=== PATIENT | female | born 2005 | race Caucasian/White ===

== ENCOUNTER 2023-11-16 07:54 | Emergency (ER) | payer OTHER, SELFPAY ==
[2023-11-16 08:04] VITALS: BP 124/73; PULSE 82; RESP 18; TEMP 36.6; O2SAT 98; BMI 24.2
--- NOTE | 2023-11-16 08:43 | XR_ITS ---
Patient: LINNEA MACIAS Facility:?[facility] Patient ID:?[id number] Site Patient ID:?[id number]. Site :?2003 Study:?XRay-Knee Left -11/16/2023 9:00:29 AM Ordering Physician:CHARMAINE Final Report: Indication: Pain Technique: Three views of the left knee Comparison: None Findings/impression : No acute fracture or malalignment. No significant knee joint effusion. No suspicious osseous lesions. The soft tissues are unremarkable. Dictated by Tc Stevenson MD @ 11/16/2023 9:14:18 AM Signed by:?Tc Stevenson MD @11/16/2023 9:14:18 AM (Electronic Signature)
--- NOTE | 2023-11-16 08:44 | ED.GENADULT ---
HPI - General Adult General Chief complaint: Extremity Pain/Injury, Lower Stated complaint: left knee pain Time Seen by Provider: 11/16/23 08:01 History of Present Illness HPI narrative: This 18-year-old female comes in reporting left knee pain. She states that it has been progressing Ali worse over the past month or so. She plays rugby competitively and did have and injury to a few days ago where she has a small bruise on the anterior of medial aspect of her patella of her left knee. She does report pain in this particular area. However she had pain prior to this episode and states that she is having more pain with regular ambulating. She has much more intense pain when squatting down and trying to stand up again. She does not report any catching or locking. She does not indicate any instability. She states that she did have a subluxation of this patella in her high school years a few years prior to this. She does not have any joint effusion. Related Data Home Medications Medication Instructions Recorded Confirmed fluoxetine 40 mg capsule (Prozac) 40 mg PO QAM 07/21/22 07/31/22 albuterol sulfate 90 mcg/actuation 1 puff inhalation 11/16/23 aerosol inhaler buspirone 10 mg tablet 10 mg PO BID 11/16/23 11/16/23 fluoxetine 60 mg tablet 60 mg PO DAILY 11/16/23 11/16/23 fluticasone 100 mcg-salmeterol 50 1 inh inhalation DAILY 11/16/23 11/16/23 mcg/dose blistr powdr for inhalation (Advair Diskus) norethindrone 1 mg-ethinyl 1 tab PO DAILY 11/16/23 11/16/23 estradiol 10 mcg (24)-iron 10 mcg(2) tablet (Lo Loestrin Fe) Previous Rx's Medication Instructions Recorded ketorolac 10 mg tablet 10 mg PO Q8H 5 days #15 tabs 11/16/23 Allergies Allergy/AdvReac Type Severity Reaction Status Date / Time amoxicillin Allergy Intermediate Rash Verified 11/16/23 08:10 Review of Systems Status of ROS: Reports: 10 or more systems reviewed and unremarkable except as noted in History and below Narrative: Constitutional: No fevers, no weight gain or loss. Eyes: No discharge. No vision changes. HENT: No congestion, no sore throat, no ear pain. Cardiovascular: No chest pain, no palpitations. Respiratory: No shortness of breath, no wheezes, no cough. Gastrointestinal: No abdominal pain, no vomiting, no diarrhea. Genitourinary: No dysuria, no hematuria. Musculoskeletal: Normal range of motion. Left knee pain as described above. Skin: No rashes, no pruritis. Neurological: No dizziness, weakness, sensory change, speech change. Endo/Heme/Allergies: No bruising or bleeding. No polydipsia. Pysch: no suicidality, no anxiety, no insomnia. All other systems reviewed and are negative. [facility] Medical History (Updated 11/16/23 @ 09:44 by Mynor Byrd MD) Depression ?F32.A - Depression, unspecified (ICD-10) OCD (obsessive compulsive disorder) ?F42.9 - Obsessive-compulsive disorder, unspecified (ICD-10) Surgical History (Updated 07/21/22 @ 10:26 by Loida Laboy PA-C) History of colonoscopy ?Z98.890 - Other specified postprocedural states (ICD-10) History of endoscopy ?Z98.890 - Other specified postprocedural states (ICD-10) Social History (Updated 07/21/22 @ 10:28 by Loida Laboy PA-C) Narrative: [employer] student. Exercises 5 to 7 times a day. Nonsmoker. Use alcohol 1 to 2 times a week. No recreational drug use. No concerns with safety or abuse. Smoking Status: Never smoker Do you use any of these nicotine containing products: None How often do you have a drink containing alcohol: monthly or less How often do you have six or more drinks on one occasion: Never AUDIT-C Alcohol total score: 1 Non-prescribed substance use: denies use Little interest or pleasure in doing things: several days Feeling down, depressed, or hopeless: several days Exam Narrative: Exam Narrative: Constitutional: Well-developed, well-nourished, no acute distress. HEENT: Normocephalic, atraumatic. Neck: Normal range of motion. Nontender. Supple. Heart: Intact distal pulses. Lungs: No chest discomfort. No wheezes, rhonchi, or rales. Abdomen: Nontender. Back: Normal range of motion. Extremities: Normal range of motion. Small bruise on the anterior medial aspect of the left patella. She has tenderness when moving her patella when relaxed in full extension. Dennys's test is negative. Ankush's test is negative. There is no laxity with varus and valgus stress. No joint effusion. Skin: Intact. No rash. Warm. No erythema or pallor. Neurologic: No altered sensation. No weakness. Alert and oriented. Psychiatric: No suicidality. No anxiety or depression. No insomnia. Nursing notes and vitals signs are reviewed. Const: Vital Signs, click to edit/add: Vital Signs - 24 hr 11/16/23 08:04 Temperature 97.8 F Pulse Rate [Right Pulse Oximeter] 82 Respiratory Rate 18 Blood Pressure [Ri ght Upper Arm] 124/73 Pulse Oximetry 98 Oxygen Delivery Me thod Room Air Course Vital Signs Vital signs: Initial Vital Signs Temperature 97.8 F 11/16/23 08:04 Temperature Source Temporal Artery Scan 11/16/23 08:04 Pulse Rate 82 11/16/23 08:04 Pulse Rhythm Regular 11/16/23 08:04 Respiratory Rate 18 11/16/23 08:04 Blood Pressure 124/73 11/16/23 08:04 Blood Pressure Mean 90 11/16/23 08:04 Blood Pressure Position Sitting 11/16/23 08:04 Pulse Oximetry 98 11/16/23 08:04 Oxygen Delivery Method Room Air 11/16/23 08:04 Vital Signs Temperature 97.8 F 11/16/23 08:04 Pulse Rate 82 11/16/23 08:04 Respiratory Rate 18 11/16/23 08:04 Blood Pressure 124/73 11/16/23 08:04 Pulse Oximetry 98 11/16/23 08:04 Oxygen Delivery Method Room Air 11/16/23 08:04 Temperature 97.8 F 11/16/23 08:04 Pulse Rate 82 11/16/23 08:04 Respiratory Rate 18 11/16/23 08:04 Blood Pressure 124/73 11/16/23 08:04 Pulse Oximetry 98 11/16/23 08:04 Oxygen Delivery Method Room Air 11/16/23 08:04 Medical Decision Making MDM Narrative Medical decision making narrative: This patient comes in with pain in her left knee as described above. X-ray imaging by my review shows no acute abnormalities. Radiology report is pending. This patient's symptoms seem to be related to overuse injury plus she did have a contact injury event playing rugby. She received crutches and a prescription for Toradol. There is no instability or other reason for immobilizing her leg. I did advise her to follow-up with orthopedic clinic. Discharge Plan Discharge Clinical Impression: Acute knee pain Patient Disposition: Home, Self-Care Condition: Unchanged Additional Instructions: Use crutches as needed. Increase activity as tolerated. Take medication also as needed and directed. Follow-up with orthopedic clinic for further evaluation and treatment. Call [phone] for appointment. Prescriptions: New ketorolac 10 mg tablet 10 mg PO Q8H 5 Days Qty: 15 0RF No Action fluoxetine [Prozac] 40 mg capsule 40 mg PO QAM albuterol sulfate 90 mcg/actuation HFA aerosol inhaler 1 puff inhalation Lo Loestrin Fe 1 mg-10 mcg (24)/10 mcg (2) tablet 1 tab PO DAILY fluoxetine 60 mg tablet 60 mg PO DAILY buspirone 10 mg tablet 10 mg PO BID fluticasone propion-salmeterol [Advair Diskus] 100-50 mcg/dose blister with device 1 inh inhalation DAILY Follow Up/Referrals: Provider,Not a Local [Primary Care Provider] - Stand Alone Forms: [email or web address] Info Instructions
== END 2023-11-16 09:57 | disposition home or self-care (01) ==
PROVIDERS: Emergency Provider Emergency Medicine Emergency Medical Services
DX: M25.562 Pain in left knee (principal)
CPT/HCPCS: 73562; 99283; 99284

== ENCOUNTER 2024-01-08 18:24 | Emergency (ER) | payer OTHER, SELFPAY ==
[2024-01-08] VITALS (10 sets, daily range): BP systolic 121–138; BP diastolic 79–90; PULSE 77–99; RESP 26; TEMP 36.8; O2SAT 96–100; BMI 25.1
--- NOTE | 2024-01-08 18:53 | XR_ITS ---
Patient: LINNEA MACIAS Facility:?[facility] Patient ID:?[id number] Site Patient ID:?[id number] Site :?2003 Study:?XRay-Chest 2 VIEWS-01/08/2024 7:16:58 PM Ordering Physician:JOSEPH Final Report: INDICATIONS: Shortness of breath. Asthma. TECHNIQUE: Chest 2 view. COMPARISON: None FINDINGS: No pneumothorax or pleural effusion. Lungs are clear. Cardiac and mediastinal contours are within normal limits. Upper abdomen and osseous structures as imaged show no acute abnormality. IMPRESSION: No evidence of acute cardiopulmonary disease. Dictated by Naeem Maciel MD @ 01/08/2024 7:26:58 PM Signed by:?Naeem Maciel MD @01/08/2024 7:26:58 PM (Electronic Signature)
--- NOTE | 2024-01-08 19:07 | ED.ASTHMA ---
HPI - Asthma General Date Seen: 01/08/24 Chief Complaint: Asthma Stated Complaint: Asthma exacerbation--cough, short of breath Time Seen by Provider: 01/08/24 18:25 Source: patient Mode of arrival: ambulatory Limitations: no limitations History of Present Illness HPI Narrative: Patient is a 18-year-old female presenting for shortness of breath. She has a history of asthma and states she feels like this is an asthma exacerbation. She states symptoms have been going on for the past 3 weeks and gradually getting worse. She has been using her home inhalers with only some improvement. Does states she of 2 inhalers with 1 of them having a longer mouth piece. Is not using spacers. States when she uses the inhaler she will feel them hit the back of her throat. Has had asthma exacerbations before worse than this but this 1 has been more consistent. Today she was exercising and despite trying the albuterol she was unable to catch her breath. She was seen a week ago by another hospital and was prescribed prednisone and doxycycline for possible sinus infection. She states she is per since slightly tender sinuses but not nearly as bad. Finished the prednisone 2 days ago. She states usually she feels like the prednisone helps but does not think this course did. Has been coughing quite a bit with the cough being productive. She states the color of the phlegm will range from clear to greenish yellow. Does have some chest pain that she feels is associated with the coughing. Denies fevers, chills, weakness, numbness, headache, vision changes. Was test for COVID/flu/RSV last week and was negative. States some people but her college of been sick was unsure with what. Related Data Home Medications Medication Instructions Recorded Confirmed fluoxetine 40 mg capsule (Prozac) 40 mg PO QAM 07/21/22 11/20/23 albuterol sulfate 90 mcg/actuation 1 puff inhalation 11/16/23 11/20/23 aerosol inhaler buspirone 10 mg tablet 10 mg PO BID 11/16/23 11/20/23 fluoxetine 60 mg tablet 60 mg PO DAILY 11/16/23 11/20/23 fluticasone 100 mcg-salmeterol 50 1 inh inhalation DAILY 11/16/23 11/20/23 mcg/dose blistr powdr for inhalation (Advair Diskus) norethindrone 1 mg-ethinyl 1 tab PO DAILY 11/16/23 11/20/23 estradiol 10 mcg (24)-iron 10 mcg(2) tablet (Lo Loestrin Fe) Previous Rx's Medication Instructions Recorded prednisone 20 mg tablet See Rx Instructions .Route 01/08/24 .COMPLEX #13 tabs Allergies Allergy/AdvReac Type Severity Reaction Status Date / Time amoxicillin Allergy Intermediate Rash Verified 11/20/23 09:53 Review of Systems Status of ROS Reports: 10 or more systems reviewed and unremarkable except as noted in History and below PFSH PFS Medical History Depression ?F32.A - Depression, unspecified (ICD-10) OCD (obsessive compulsive disorder) ?F42.9 - Obsessive-compulsive disorder, unspecified (ICD-10) Surgical History History of colonoscopy ?Z98.890 - Other specified postprocedural states (ICD-10) History of endoscopy ?Z98.890 - Other specified postprocedural states (ICD-10) Social History Narrative: [employer] student. Exercises 5 to 7 times a day. Nonsmoker. Use alcohol 1 to 2 times a week. No recreational drug use. No concerns with safety or abuse. Smoking Status: Never smoker Do you use any of these nicotine containing products: None How often do you have a drink containing alcohol: monthly or less How often do you have six or more drinks on one occasion: Never AUDIT-C Alcohol total score: 1 Non-prescribed substance use: denies use Little interest or pleasure in doing things: several days Feeling down, depressed, or hopeless: several days Exam Narrative: Exam Narrative: Const: Well-nourished, Well-developed, in mild distress Eyes: PERRL, no conjunctival injection, and symmetrical lids HENT: Atraumatic external nose and ears. Moist mucous membranes. Neck: Symmetric, trachea midline, No thyromegaly. CVS: RRR, No murmurs or gallops. Peripheral pulses 2+ and equal in all extremities RESP: Mild increase in respiratory effort. Clear to auscultation bilaterally. GI: Nontender/Nondistended, No rebound or guarding. MSK:Extremities w/o deformity, Normal Active ROM, tenderness to palpation of chest Skin: Warm, Dry. No rashes or lesions. Neuro: Normal Muscle tone, No focal neurological deficits. Psych: Awake, Alert, & Oriented x3. Appropriate mood and affect. Const: Vital Signs, click to edit/add: Vital Signs - 24 hr 01/08/24 18:31 01/08/24 18:35 01/08/24 18:45 Temperature 98.3 F Pulse Rate 99 77 Pulse Rate [Pulse Oximeter] 85 Respiratory Rate 26 H Blood Pressure Blood Pressure [Ri ght Upper Arm] 138/82 Pulse Oximetry 97 100 98 Oxygen Delivery Me thod Room Air 01/08/24 19:00 01/08/24 19:05 01/08/24 19:15 Temperature Pulse Rate 79 87 83 Pulse Rate [Pulse Oximeter] Respiratory Rate Blood Pressure 131/79 Blood Pressure [Ri ght Upper Arm] Pulse Oximetry 100 100 96 Oxygen Delivery Me thod 01/08/24 19:30 01/08/24 19:45 01/08/24 20:00 Temperature Pulse Rate 86 81 79 Pulse Rate [Pulse Oximeter] Respiratory Rate Blood Pressure 121/90 H Blood Pressure [Ri ght Upper Arm] Pulse Oximetry 99 100 96 Oxygen Delivery Me thod 01/08/24 20:01 Temperature Pulse Rate 93 Pulse Rate [Pulse Oximeter] Respiratory Rate Blood Pressure Blood Pressure [Ri ght Upper Arm] Pulse Oximetry 96 Oxygen Delivery Me thod Course Vital Signs Vital signs: Initial Vital Signs Temperature 98.3 F 01/08/24 18:31 Temperature Source Temporal Artery Scan 01/08/24 18:31 Pulse Rate 85 01/08/24 18:31 Respiratory Rate 26 H 01/08/24 18:31 Blood Pressure 138/82 01/08/24 18:31 Blood Pressure Mean 100 01/08/24 18:31 Pulse Oximetry 97 01/08/24 18:31 Oxygen Delivery Method Room Air 01/08/24 18:31 Vital Signs Temperature 98.3 F 01/08/24 18:31 Pulse Rate 85 01/08/24 18:31 Respiratory Rate 26 H 01/08/24 18:31 Blood Pressure 138/82 01/08/24 18:31 Pulse Oximetry 97 01/08/24 18:31 Oxygen Delivery Method Room Air 04/30/24 18:31 Temperature 98.3 F 01/08/24 18:31 Pulse Rate 93 01/08/24 20:01 Respiratory Rate 26 H 01/08/24 18:31 Blood Pressure 121/90 H 01/08/24 20:00 Pulse Oximetry 96 01/08/24 20:01 Oxygen Delivery Method Room Air 01/08/24 18:31 Medications Administered Medications: Discontinued Medications Generic Name Dose Route Start Last Admin Trade Name Sheyla PRN Reason Stop Dose Admin Albuterol 5 mg 01/08/24 18:52 01/08/24 19:10 Albuterol Sulfate 2.5 Mg/3 Ml Vial.Neb NEB 01/08/24 18:53 5 mg ONCE ONE Administration Methylprednisolone Sodium Succinate 125 mg 01/08/24 18:56 01/08/24 19:21 Methylprednisolone Sod Succ 62.5 Mg/Ml (125) IVP 01/08/24 18:57 125 mg ONCE ONE Administration MDM - Asthma MDM Narrative Medical decision making narrative: Patient is a 18-year-old female presenting for shortness of breath. She states this feels like an asthma exacerbation. She is also having chest pain. The chest pain is reproducible on exam but I will ordered EKG and troponin to better rule out ACS. Will also recheck a COVID/flu/RSV. BMP and CBC also ordered along with a test. Chest x-ray ordered look for signs of pneumonia or pneumothorax. The time I was able to examine her she order received 2 DuoNeb treatments states it was making her feel better. She is still coughing quite a bit but lungs sound clear at that time I will give her another breathing treatment. This time albuterol. Solu-Medrol also given Chest x-ray reviewed by myself and the radiologist shows no concerning abnormalities. Lab work shows no concerning findings. EKG within normal limits. Chest pain was reproducible with palpation seems very unlikely to be ACS related most likely musculoskeletal secondary to the coughing. After the albuterol she is feeling much better and feels safe for discharge. At this time I will discharge her on a longer dose of steroids concerned she is just on a burst dose and she has been having symptoms for 3 weeks. Written prescription for a spacer for her inhaler was also provided. Lab Data Labs: Lab Results 01/08/24 Range/Units 19:02 WBC 9.24 (4.50-11.00) K/uL RBC 4.52 (4.00-5.20) m/uL Hgb 13.7 (12.0-16.0) gm/dL Hct 41.8 (33.0-51.0) % MCV 93 (80-100) fL MCH 30 (26-34) pg MCHC 33 (32-36) gm/dL RDW Coeff of Caitie 11.9 (11.5-15.5) % Plt Count 465 H (140-440) K/uL Neut % (Auto) 44.0 (42.0-72.0) % Lymph % (Auto) 48.4 H (20-44) % [place] % (Auto) 5.1 (0.0-11.0) % Eos % (Auto) 1.6 (0.0-7.0) % Baso % (Auto) 0.3 (0.0-3.0) % Neut # (Auto) 4.06 (1.7-7.0) K/uL Lymph # (Auto) 4.50 H (0.90-2.90) K/uL [place] # (Auto) 0.50 (0.00-0.90) K/UL Eos # (Auto) 0.15 (0.00-0.50) K/uL Baso # (Auto) 0.03 (0.00-0.30) K/uL Abs Immat Gran (auto) 0.06 (0.00-0.30) K/uL Imm/Tot Granulo (auto) 0.6 % Sodium 137 (135-149) mmol/L Potassium 3.6 (3.6-5.1) mmol/L Chloride 100 (96-114) mmol/L Carbon Dioxide 27 (20-32) mmol/L Anion Gap 10 (7-15) mEq/L BUN 20 (5-24) mg/dL Creatinine 1.0 (0.5-1.5) mg/dL Estimated Creat Clear 87.27 Estimated GFR 83 ml/min Glucose 80 (60-115) mg/dL Calcium 9.7 (8.4-10.6) mg/dL HCG, Qual Negative (Negative) SARS-CoV-2 (PCR) Negative SARS-CoV-2 (Negative) Influenza Type A (PCR) Negative PCR FLU A (Negative) Influenza Type B (PCR) Negative PCR FLU B (Negative) RSV (PCR) Negative PCR RSV (Negative) POC Troponin I 0.00 L (0.01-0.04) ng/ml Imaging Data Chest x-ray: Radiologist's impression: No evidence of acute cardiopulmonary disease. Dictated by Naeem Maciel MD @ 01/08/2024 7:26:58 PM ECG Data Attestation: I personally reviewed and interpreted this ECG as follows: Prior ECG tracings: not available for review Interpretation: Normal sinus rhythm with rate 74 beats per minute, normal intervals, normal axis, no ST or T-wave abnormalities. It does appear to be some artifact in V4 through V6 likely from movement considering is also seen and though continues lead II Discharge Plan Discharge Clinical Impression: Asthma with acute exacerbation Patient Disposition: Home, Self-Care Condition: Improved Instructions: How to Use a Metered-Dose Inhaler and a Spacer (DC) Additional Instructions: When your using your asthma albuterol inhaler use the spacer. Use the prednisone for the next 10 days as directed. You will taper down starting from 50 mg a day down to 10. Return for new worsening symptoms. Prescriptions: New prednisone 20 mg tablet See Rx Instructions .ROUTE .COMPLEX Qty: 13 0RF Rx Instructions: Take 40 mg daily for 3 days from to 01/09 Take 30 mg for 2 days from 01/10 to 01/11 Take 20 mg for 2 days from 01/12 to 6 Take 10 mg for 2 days from 01/14 to 01/15 Pills can be cut in half No Action fluoxetine [Prozac] 40 mg capsule 40 mg PO QAM albuterol sulfate 90 mcg/actuation HFA aerosol inhaler 1 puff inhalation Lo Loestrin Fe 1 mg-10 mcg (24)/10 mcg (2) tablet 1 tab PO DAILY fluoxetine 60 mg tablet 60 mg PO DAILY buspirone 10 mg tablet 10 mg PO BID fluticasone propion-salmeterol [Advair Diskus] 100-50 mcg/dose blister with device 1 inh inhalation DAILY Follow Up/Referrals: Provider,Not a Local [Primary Care Provider] - Stand Alone Forms: [employer] Info Instructions
[2024-01-08] MEDS: ALBUTEROL SULFATE 2.5 MG/3 ML VIAL.NEB 5 MG NEB (19:10)
[2024-01-08 19:20] LABS: Basophils Absolute Auto 0.03 K/uL (0.00-0.30); Basophils Percent Auto 0.3 % (0.0-3.0); Eosinophils Absolute Auto 0.15 K/uL (0.00-0.50); Eosinophils Percent Auto 1.6 % (0.0-7.0); Hematocrit 41.8 % (33.0-51.0); Hemoglobin* 13.7 gm/dL (12.0-16.0); Immature Granulocytes Abs Auto 0.06 K/uL (0.00-0.30); Immature Granulocytes Pct Auto 0.6 %; Lymphocytes Percent Auto 48.4 % (20-44); Mean Corpuscular HGB Conc 33 gm/dL (32-36); Mean Corpuscular Hemoglobin 30 pg (26-34); Mean Corpuscular Volume 93 fL (80-100); Monocytes Percent Auto 5.1 % (0.0-11.0); Neutrophils Absolute Auto 4.06 K/uL (1.7-7.0); Platelet Count* 465 K/uL (140-440); RDW Coefficient of Variation % 11.9 % (11.5-15.5); Red Blood Count 4.52 m/uL (4.00-5.20); White Blood Count* 9.24 K/uL (4.50-11.00)
[2024-01-08] MEDS: METHYLPREDNISOLONE SOD SUCC 62.5 MG/ML (125) 125 MG IVP (19:21)
[2024-01-08 19:22] LABS: Slide Review Reflex No
[2024-01-08 19:34] LABS: Chloride* 100 mmol/L (96-114); Potassium* 3.6 mmol/L (3.6-5.1); Sodium* 137 mmol/L (135-149)
[2024-01-08 19:37] LABS: Anion Gap 10 mEq/L (7-15); Blood Urea Nitrogen* 20 mg/dL (5-24); Carbon Dioxide* 27 mmol/L (20-32); Est. Creatinine Clearance* 87.27; Estimated Glomerular Filt Rate 83 ml/min
[2024-01-08 19:38] LABS: Calcium* 9.7 mg/dL (8.4-10.6); Glucose* 80 mg/dL (60-115)
[2024-01-08 19:59] LABS: HCG Qualitative Serum* Negative (Negative)
[2024-01-08 20:01] LABS: PCR FLU A Negative PCR FLU A (Negative); PCR FLU B Negative PCR FLU B (Negative); PCR RSV Negative PCR RSV (Negative); SARS PCR* Negative SARS-CoV-2 (Negative)
== END 2024-01-08 20:29 | disposition home or self-care (01) ==
PROVIDERS: Emergency Provider Student in an Organized Health Care Education/Training Program
DX: J45.901 Unspecified asthma with (acute) exacerbation (principal)
CPT/HCPCS: 36415; 71046; 80048; 84484; 84703; 85025; 87631; 93005; 94640; 99283; 99284; 99285; J2919

== ENCOUNTER 2024-01-17 13:00 | Outpatient (RCR) | payer OTHER, SELFPAY | END 2024-01-18 07:41 | disposition home or self-care (01) | PROVIDERS: Visit Provider Orthopaedic Surgery Sports Medicine | DX: M76.52 Patellar tendinitis, left knee (principal); M25.562 Pain in left knee; M25.572 Pain in left ankle and joints of left foot; M25.551 Pain in right hip; M25.552 Pain in left hip; Z51.89 Encounter for other specified aftercare | CPT/HCPCS: 97110; 97112; 97140; 97162; 97535 ==

== ENCOUNTER 2024-06-24 19:13 | Emergency (ER) | payer OTHER, SELFPAY ==
[2024-06-24 19:21] VITALS: BP 131/79; PULSE 83; RESP 18; TEMP 36.8; O2SAT 98; BMI 25.0
--- NOTE | 2024-06-24 19:28 | ED.GENADULT ---
HPI - General Adult General Time Seen by Provider: 19:28 Date Seen: 06/24/24 Chief complaint: Ear/Nose/Throat Problem Stated complaint: Hit nose at [place]-poss broken nose Time Seen by Provider: 06/24/24 19:28 Source: patient and RN notes reviewed Mode of arrival: ambulatory Limitations: no limitations History of Present Illness HPI narrative: This 19-year-old female is coming in with nasal injury. She was doing a warmup drill in [place] and she went down quickly and hit her bridge of her nose on her partners head. She had bleeding from the right nares, nose pain and her nose looked deformed from baseline. She does have a history of a nasal fracture that healed without any intervention, reported no deformity from this. Denies any loss of consciousness, and no other injury, no neck pain. She feels like her jaws fine, teeth feel normal. Related Data Home Medications ?Medication ?Instructions ?Recorded ?Confirmed fluoxetine 40 mg capsule (Prozac) 40 mg PO QAM 07/21/22 11/20/23 albuterol sulfate 90 mcg/actuation 1 puff inhalation 11/16/23 11/20/23 aerosol inhaler buspirone 10 mg tablet 10 mg PO BID 11/16/23 11/20/23 fluoxetine 60 mg tablet 60 mg PO DAILY 11/16/23 11/20/23 fluticasone 100 mcg-salmeterol 50 1 inh inhalation DAILY 11/16/23 11/20/23 mcg/dose blistr powdr for inhalation (Advair Diskus) norethindrone 1 mg-ethinyl 1 tab PO DAILY 11/16/23 11/20/23 estradiol 10 mcg (24)-iron 10 mcg(2) tablet (Lo Loestrin Fe) doxycycline monohydrate 100 mg 100 mg PO BID 06/24/24 06/24/24 capsule Previous Rx's ?Medication ?Instructions ?Recorded prednisone 20 mg tablet See Rx Instructions .Route 01/08/24 .COMPLEX #13 tabs Allergies Allergy/AdvReac Type Severity Reaction Status Date / Time amoxicillin Allergy Intermediate Rash Verified 11/20/23 09:53 Review of Systems Status of ROS: Reports: 6 or more systems reviewed and unremarkable except as noted in History and below [facility] Medical History Depression ?F32.A - Depression, unspecified (ICD-10) OCD (obsessive compulsive disorder) ?F42.9 - Obsessive-compulsive disorder, unspecified (ICD-10) Surgical History History of colonoscopy ?Z98.890 - Other specified postprocedural states (ICD-10) History of endoscopy ?Z98.890 - Other specified postprocedural states (ICD-10) Social History Narrative: [employer] student. Exercises 5 to 7 times a day. Nonsmoker. Use alcohol 1 to 2 times a week. No recreational drug use. No concerns with safety or abuse. Smoking Status: Never smoker Do you use any of these nicotine containing products: None How often do you have a drink containing alcohol: monthly or less How often do you have six or more drinks on one occasion: Never AUDIT-C Alcohol total score: 1 Non-prescribed substance use: marijuana (any form) Non-prescribed substance use details: occasional edibles Little interest or pleasure in doing things: several days Feeling down, depressed, or hopeless: several days Exam Const: Vital Signs, click to edit/add: Vital Signs - 24 hr 06/24/24 19:21 Temperature 98.3 F Pulse Rate [Pulse Oximeter] 83 Respiratory Rate 18 Blood Pressure [Ri ght Upper Arm] 131/79 Pulse Oximetry 98 Oxygen Delivery Me thod Room Air This 19-year-old female is alert, interactive, no apparent distress. She is ambulatory into the ED of her own accord. Her nasal bridge seems to have some swelling, some ecchymosis and deformity with there is a little bit of a sulcus more on the left side. She has some blood in the right nares, no evidence of any hematoma. TMs canals are normal, no pain over TMJs. Her jaw opens easily, she feels her teeth occlude normally. No oral pharyngeal trauma noted. Pupils are equal round reactive, sclera clear. No midline tenderness of her neck, no neck masses. Documenting provider has reviewed patient's vital signs: yes Course Course ED Course: Reviewed with patient that standard of care for nasal fracture imaging is CT. We will proceed with facial CT without contrast. Nose is not actively bleeding, note no septal hematoma. Do suspect fracture with the deformity in the nasal bridge that is visible. Will await the CT. Reevaluation(s) Time of Reevaluation #1: 20:36 Reevaluation #1: Reviewed CT report with patient, provided her a copy. We are going to give her some Tylenol prior to discharge, she does not have any in her dorm. Vital Signs Vital signs: Initial Vital Signs Temperature 98.3 F 06/24/24 19:21 Temperature Source Temporal Artery Scan 06/24/24 19:21 Pulse Rate 83 06/24/24 19:21 Respiratory Rate 18 06/24/24 19:21 Blood Pressure 131/79 06/24/24 19:21 Blood Pressure Mean 96 06/24/24 19:21 Pulse Oximetry 98 06/24/24 19:21 Oxygen Delivery Method Room Air 06/24/24 19:21 Vital Signs Temperature 98.3 F 06/24/24 19:21 Pulse Rate 83 06/24/24 19:21 Respiratory Rate 18 06/24/24 19:21 Blood Pressure 131/79 06/24/24 19:21 Pulse Oximetry 98 06/24/24 19:21 Oxygen Delivery Method Room Air 06/24/24 19:21 Temperature 98.3 F 06/24/24 19:21 Pulse Rate 83 06/24/24 19:21 Respiratory Rate 18 06/24/24 19:21 Blood Pressure 131/79 06/24/24 19:21 Pulse Oximetry 98 06/24/24 19:21 Oxygen Delivery Method Room Air 06/24/24 19:21 Medical Decision Making Imaging Data CT- Other: Attestation: I have reviewed the pertinent imaging results. Radiologist's impression: Patient: LINNEA MACIAS Facility:?[facility] Patient ID:?[id number] Site Patient ID:?[id number]. Site :?[id number] Study:?CT-Facial W/O-06/24/2024 7:47:58 PM Ordering Physician:John Kumar Final Report: Indication: Injury, rule out nasal fracture. [place] injury. Technique: Helical axial sections were obtained through the facial skeleton, mandible and adjacent structures without intravenous contrast material. Comparison: None Findings: No fracture is demonstrated in the facial skeleton or mandible. Midline nondisplaced nasal bone fracture and nondisplaced fracture along the right nasal aperture. Age indeterminate rightward deviation of the nose. Leftward deviation of the nasal septum. The orbits and their contents are normal in appearance. There is no evidence for penetrating injury to the ocular globes. The lenses are situated in their normally expected anterior locations. No radiodense or metallic foreign body is demonstrated. No significant abnormality is demonstrated in the sinonasal cavities or adjacent structures. The sinonasal cavities are clear. The ostiomeatal complexes on each side are structurally normal and widely patent. The visualized portions of the brain are normal in appearance. Impression: 1. Midline nondisplaced nasal bone fracture and nondisplaced fracture along the right nasal aperture. Age indeterminate rightward deviation of the nose. 2. Leftward deviation of the nasal septum. Please note that all CT scans at this facility use dose modulation, iterative reconstruction, and/or weight-based dosing when appropriate to reduce radiation dose to as low as reasonably achievable. Dictated by Leo Yadav MD @ 06/24/2024 8:08:11 PM (Electronic Signature) Discharge Plan Discharge Clinical Impression: Fracture of nasal bone Qualifiers: Encounter type: initial encounter Fracture type: closed Qualified Code(s): S02.2XXA - Fracture of nasal bones, initial encounter for closed fracture Patient Disposition: Home, Self-Care Condition: Stable Instructions: Nasal Fracture (ED) Additional Instructions: Ice, elevate head as much as able to next few days while sleeping to help decrease swelling. Tylenol and ibuprofen per bottle directions as needed for discomfort. Call [facility] on Sunday at [phone] and let them know that you need to get scheduled to see Dr. Garcia in ENT for follow-up for nasal fracture. If concerns in the interim until you see ENT, follow up with us in the ED. Activity Level: Activity as Tolerated Prescriptions: No Action fluoxetine [Prozac] 40 mg capsule 40 mg PO QAM albuterol sulfate 90 mcg/actuation HFA aerosol inhaler 1 puff inhalation Lo Loestrin Fe 1 mg-10 mcg (24)/10 mcg (2) tablet 1 tab PO DAILY fluoxetine 60 mg tablet 60 mg PO DAILY buspirone 10 mg tablet 10 mg PO BID fluticasone propion-salmeterol [Advair Diskus] 100-50 mcg/dose blister with device 1 inh inhalation DAILY prednisone 20 mg tablet See Rx Instructions .ROUTE .COMPLEX Qty: 13 0RF Rx Instructions: Take 40 mg daily for 3 days from to 01/09 Take 30 mg for 2 days from 01/10 to 01/11 Take 20 mg for 2 days from 01/12 to 01/13 Take 10 mg for 2 days from 01/14 to 01/15 Pills can be cut in half doxycycline monohydrate 100 mg capsule 100 mg PO BID Follow Up/Referrals: Provider,Not a Local [Primary Care Provider] - Stand Alone Forms: MyHealth Info Instructions
--- NOTE | 2024-06-24 19:32 | CRLHL7_ITS ---
For Patients: As a result of the Century Cures Act, medical imaging exams and procedure reports are released immediately into your electronic medical record. You may view this report before your referring provider. If you have questions, please contact your health care provider. Indication: Injury, rule out nasal fracture. [place] injury. Technique: Helical axial sections were obtained through the facial skeleton, mandible and adjacent structures without intravenous contrast material. Comparison: None Findings: No fracture is demonstrated in the facial skeleton or mandible. Midline nondisplaced nasal bone fracture and nondisplaced fracture along the right nasal aperture. Age indeterminate rightward deviation of the nose. Leftward deviation of the nasal septum. The orbits and their contents are normal in appearance. There is no evidence for penetrating injury to the ocular globes. The lenses are situated in their normally expected anterior locations. No radiodense or metallic foreign body is demonstrated. No significant abnormality is demonstrated in the sinonasal cavities or adjacent structures. The sinonasal cavities are clear. The ostiomeatal complexes on each side are structurally normal and widely patent. The visualized portions of the brain are normal in appearance. Impression: 1. Midline nondisplaced nasal bone fracture and nondisplaced fracture along the right nasal aperture. Age indeterminate rightward deviation of the nose. 2. Leftward deviation of the nasal septum. Please note that all CT scans at this facility use dose modulation, iterative reconstruction, and/or weight-based dosing when appropriate to reduce radiation dose to as low as reasonably achievable. Dictated by Leo Yadav MD @ 06/24/2024 8:08:11 PM (Electronically Signed)
[2024-06-24 20:39] VITALS: BP 128/54; PULSE 89; RESP 16; O2SAT 99
[2024-06-24] MEDS: ACETAMINOPHEN 500 MG TABLET 1000 MG PO (20:39)
== END 2024-06-24 20:55 | disposition home or self-care (01) ==
PROVIDERS: Emergency Provider Family Medicine
DX: S02.2XXA Fracture of nasal bones, initial encounter for closed fracture (principal); Y93.63 Activity, rugby
CPT/HCPCS: 70486; 99283; 99284; A9270

== ENCOUNTER 2024-09-20 14:51 | Outpatient (CLI) | payer OTHER, SELFPAY | END 2024-09-20 14:52 | disposition home or self-care (01) | LOC: AMB 10-04 06:59 | PROVIDERS: Visit Provider Emergency Medicine | DX: R06.09 Other forms of dyspnea (principal); R41.0 Disorientation, unspecified | CPT/HCPCS: A0425; A0427 ==

== ENCOUNTER 2024-09-20 15:23 | Emergency (ER) | payer OTHER, SELFPAY ==
--- OUTSIDE RECORDS SUMMARY | 2024-09-20 15:24 | XMS_ITS | Clinical Summary ---
Author Organization [facility] Address [place], [place] [address] Care Team Providers Care Family Services Manager Name Role Phone Pcp, No Primary Care Provider Unavailabl e Allergies Active Allergy Reactions Criticality Noted Date Comments Penicillins Rash High 11/13/2008 Amoxicillin Medications busPIRone (BUSPAR) 10 mg tablet 12/18/2022 Active FLUoxetine (PROZAC) 40 mg capsule 12/18/2022 Active Blisovi Fe , tablet Take 1 Tablet by mouth once daily. 08/25/2022 Active Active Problems No known active problems Social History Tobacco Use Types Packs/Day Years Used Date Smoking Tobacco: Never Smokeless Tobacco: Never Tobacco Cessation:Counseling Given: Yes Alcohol Use Standard Drinks/Week Comments Yes 0 (1 standard drink = 0.6 oz pur e alcohol) 2-3 drinks per week Social Connections Answer Date Recorded Frequency of Communication with Friends and Fami ly Not on file 12/27/2022 Comments Unknown Sex and Gender Information Value Date Recorded Sex Assigned at Not on file Legal Sex Female 1:00 PM CDT Gender Identity Not on file Sexual Orientation Not on file Obstetrics History Last Filed Vital Signs Vital Sign Reading Time Taken Comments Blood Pressure 107/69 12/27/2022 3:53 PM CDT Pulse 61 12/27/2022 3:53 PM CDT Temperature 36.8 C (98.2 F) 12/27/2022 3:53 PM CDT Respiratory Rate - - Oxygen Saturation 96% 12/27/2022 3:53 PM CDT Inhaled Oxygen Concentration - - Weight 70 kg (154 lb 6.4 oz) 12/27/2022 3:53 PM CDT Height 170 cm (5' 6.93) 12/27/2022 3:53 PM CDT Body Mass Index 24.23 12/27/2022 3:53 PM CDT Plan of Treatment Health Maintenance Due Date Last Done Comments Tdap 2014 Depression screening for age 12+ 2015 HIV for age 15-65 2018 HPV series for age 9-26 (1 - 3-dose series) 2018 Chlamydia for age 16-24 2019 Hepatitis C screening for ag e 18-79 2021 Tetanus booster 2023 BMI (ht and wt on same day) for age 18+ 12/28/2023 12/27/2022 Pap test for age 21-65 2024 COVID-19 vaccine series ( season) 2024 09/19/2021 Influenza for age 9-49 05/11/2024 Meningococcal series for age 11-21 Aged Out No longer eligible based on patient's age to complete this topic Pneumococcal series for age 6-49 Aged Out No longer eligible based on patient's age to complete this topic Care Teams Family Services Manager Relationship Specialty Start Date End Date Pcp, No . PCP - General 12/27/22
--- OUTSIDE RECORDS SUMMARY | 2024-09-20 15:24 | XMS_ITS | Clinical Summary ---
Author Organization [facility] [employer] lin Address [address] [facility] [place] [address] Care Team Providers Care Duck Bill Operator Name Role Phone No, Pcp ORACLE ANALYST Primary Care Provider Unavailabl e Allergies Active Allergy Reactions Criticality Noted Date Comments Amoxicillin Rash Low 08/30/2016 Medications No known medications Social History Tobacco Use Types Packs/Day Years Used Date Smoking Tobacco: Never Comments No Sex and Gender Information Value Date Recorded Sex Assigned at Not on file Legal Sex Female 6:22 PM EST Gender Identity Not on file Sexual Orientation Not on file Last Filed Vital Signs Vital Sign Reading Time Taken Comments Blood Pressure 108/62 08/30/2016 6:29 PM EST Pulse 89 08/30/2016 6:29 PM EST Temperature 37.1 C (98.7 F) 08/30/2016 6:29 PM EST Respiratory Rate 16 08/30/2016 6:29 PM EST Oxygen Saturation 98% 08/30/2016 6:29 PM EST Inhaled Oxygen Concentration - - Weight 54.4 kg (120 lb) 08/30/2016 6:29 PM EST Height - - Body Mass Index - - Plan of Treatment Health Maintenance Due Date Last Done Comments Depression: Screening Annual ly using PHQ-2/9 in Adults 18 yrs or above (or HM Modifier)([facility]) 2021 Hepatitis C Virus Infection in Adolescents and Adults: Screening (or Modifier) ([facility]) 2021 SDOH Screening Reminder: Ruthy bhatia for all adults ([facility]) 2021 Tobacco Smoking Cessation: i n Adults excluding Women: Behavioral and Pharmacotherapy Interventions ([facility]) 2021 DTaP/Tdap/Td Vaccines ([facility]) (1 - Tdap) 2022 Lipid Screening: Once for Wo men aged 20 to 45 yrs ([facility]) 2023 Cervical Cancer Screenin 1-65 yrs of age (or Modifier) 2024 Cervical Cancer Screening: P ap every 3 yrs pts age 21-65 2024 Cervical Cancer: Pap Screeni ng with Modifier timing ([facility]) 2024 Cervical Cancer: hrHPV alone or with cotesting Pap for Pts 30-65yrs screening every 5yrs ([facility] ) 2024 Flu Vaccination: Yearly for ages 18mos through 64 years (or Modifier)([facility] ) 04/10/2024 COVID-19 Vaccine Screening: Initial Series and Booster Status ([facility]) (2023- season) 2024 Zoster/Shingles Vaccine Seri es Screening: Adults aged 18+ yrs (or HM Modifiers)([facility] ) (1 of 2) 2053 Pneumococcal Vaccination Scr eening: Pts 0-19 & 19-64 yrs of age ([facility] ) Aged Out No longer eligible based on patient's age to complete this topic Medical Devices Not on file Insurance [facility] Care Teams Duck Bill Operator Relationship Specialty Start Date End Date No, Pcp, ORACLE ANALYST N/A Do not use PCP - General 08/30/16
--- OUTSIDE RECORDS SUMMARY | 2024-09-20 15:24 | XMS_ITS | Continuity of Care Document ---
Author Name [facility] User [place] Address Unknown Organization Unknown Address Unknown Procedures FILTER APPLIED:Only known Procedures with Onset Date within the last 5 years Procedure Date Procedure Provider Additionjuan francisco funez Information Status SELF CARE MNGMENT TRAINING (92957) Completed ASSAY OF TROPONIN QUANT (18549) Completed EMERGENCY DEPT VISIT MOD MDM (29881) Completed RESP VIRUS 3-5 TARGETS (54373) Completed ROUTINE VENIPUNCTURE (18363) Completed AIRWAY INHALATION TREATMENT (38161) Completed ELECTROCARDIOGRAM TRACING (87527) Completed COMPLETE CBC W/AUTO DIFF WBC (46983) Completed X-RAY EXAM CHEST 2 VIEWS (06328) Completed METABOLIC PANEL TOTAL CA (75129) Completed EMERGENCY DEPT VISIT HI MDM (16770) Completed CHORIONIC GONADOTROPIN ASSAY (23759) Completed NEUROMUSCULAR REEDUCATION (24270) Completed PT EVAL MOD COMPLEX 30 MIN (85187) Completed MANUAL THERAPY 1/> REGIONS (23666) Completed THERAPEUTIC EXERCISES (29517) Completed X-RAY EXAM OF KNEE 3 (64859) Completed EMERGENCY DEPT VISIT MOD MDM (80594) Completed EMERGENCY DEPT VISIT LOW MDM (23744) Completed Encounters FILTER APPLIED:Only known Encounters with Admission Date within the last 5 years Encounter Location Admission Discharge Billing Code [facility]
[2024-09-20 15:29] VITALS: BP 123/58; PULSE 94; RESP 18; TEMP 36.7; O2SAT 99; BMI 25.8
--- NOTE | 2024-09-20 15:46 | ED.GENADULT ---
HPI - General Adult General Date Seen: 09/20/24 Chief complaint: Asthma Stated complaint: Asthma Time Seen by Provider: 09/20/24 15:43 History of Present Illness HPI narrative: This is a 19-year-old female [employer] student with a past medical history including asthma (no previous hospitalization), anxiety, depression, patellar tendinitis, previous nasal fracture, previous concussion. She presents to the ER today by EMS. Report from paramedics is that she is a [employer]. She was running today in their epileptics center when she became abruptly short of breath with confusion and altered mental status. When EMS arrived they were not able to get an oxygen measurement but her lungs sounded very tight with poor aeration. She looked like she was very short of breath. She also was somewhat drowsy with altered mental status. They administered a DuoNeb and then a 2nd albuterol neb with substantial improvement in her breathing. Since then her mental status is normalized. She has been alert and conversant during transport here to the ER. Her blood sugar was normal. History from the patient is that she does have a history of asthma. She felt as though is flaring a little bit when she was traveling over the winter holiday. She has been doing well this past week from a breathing standpoint. She denies any recent cough, sore throat, nasal congestion, or other URI symptoms. She is not sure what made her asthma flare-up today. Sometimes it flares up due to change in weather. Sometimes it can be triggered by activity. 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 She was at the Sports facility today doing rugby practice. She had done about 45 minutes of throwing and catching with her friend/teammate. Subsequently, she and her rugby team were doing conditioning drills with running. During this she became abruptly short of breath. She does not remember what happened next until she can recall riding in the ambulance. She also recalls that she was struck gently in the nose by a thrown rugby today and had a brief, self-limited nose bleed. She does not have any headache. No neck pain today. She does note that sometimes she gets neck pain and did have an episode of that several days earlier this week. She says she has a old neck injury from riding horses and sometimes her neck pain flares up. She is under a lot of stress including was course work, working on her thesis, plan for graduate school, job, as well as scholastic commitments. Related Data Home Medications ?Medication ?Instructions ?Recorded ?Confirmed fluoxetine 40 mg capsule (Prozac) 40 mg PO QAM 07/21/22 07/01/24 albuterol sulfate 90 mcg/actuation 1 puff inhalation 11/16/23 07/01/24 aerosol inhaler buspirone 10 mg tablet 10 mg PO BID 11/16/23 07/01/24 fluoxetine 60 mg tablet 60 mg PO DAILY 11/16/23 07/01/24 fluticasone 100 mcg-salmeterol 50 1 inh inhalation DAILY 11/16/23 07/01/24 mcg/dose blistr powdr for inhalation (Advair Diskus) norethindrone 1 mg-ethinyl 1 tab PO DAILY 11/16/23 07/01/24 estradiol 10 mcg (24)-iron 10 mcg(2) tablet (Lo Loestrin Fe) doxycycline monohydrate 100 mg 100 mg PO BID 06/24/24 07/01/24 capsule Previous Rx's ?Medication ?Instructions ?Recorded prednisone 20 mg tablet See Rx Instructions .Route 01/08/24 .COMPLEX #13 tabs Allergies Allergy/AdvReac Type Severity Reaction Status Date / Time amoxicillin Allergy Intermediate Rash Verified 09/20/24 15:35 [facility] Medical History Depression ?F32.A - Depression, unspecified (ICD-10) OCD (obsessive compulsive disorder) ?F42.9 - Obsessive-compulsive disorder, unspecified (ICD-10) Surgical History History of colonoscopy ?Z98.890 - Other specified postprocedural states (ICD-10) History of endoscopy ?Z98.890 - Other specified postprocedural states (ICD-10) Social History Narrative: [employer] student. Exercises 5 to 7 times a day. Nonsmoker. Use alcohol 1 to 2 times a week. No recreational drug use. No concerns with safety or abuse. Smoking Status: Never smoker Do you use any of these nicotine containing products: None How often do you have a drink containing alcohol: monthly or less How often do you have six or more drinks on one occasion: Never AUDIT-C Alcohol total score: 1 Non-prescribed substance use: marijuana (any form) Non-prescribed substance use details: occasional edibles Exam Narrative: Exam Narrative: Constitutional: Appears well-developed and well-nourished. Alert. Conversant. Non toxic. HENT: Head: Atraumatic. Nose: Externally normal. No deformity. No bruising. No swelling. Small amount of dried epistaxis inside the right naris. Left nares normal. Septum normal. Mouth/Throat: Oral mucosa is clear and moist. no trismus. Pharynx normal. Tonsils symmetric. No tonsillar enlargement, erythema, or exudate. Eyes: Conjunctivae normal. EOM normal. Pupils equal, round, and reactive to light. No scleral icterus. Neck: Normal range of motion. Neck supple. No tracheal deviation present. No posterior midline tenderness Cardiovascular: Normal rate, regular rhythm. No gallop. No friction rub. No murmur heard. Symmetric radial artery pulses Pulmonary/Chest: Effort normal. No stridor. No respiratory distress. No wheezes. No rales. No rhonchi . No tenderness. Abdominal: Soft.No distension. No mass. No tenderness. No rebound. No guarding. Musculoskeletal: RUE: Normal range of motion. No tenderness. No deformity LUE: Normal range of motion. No tenderness. No deformity RLE: Normal range of motion. No edema. No tenderness. No deformity LLE: Normal range of motion. No edema. No tenderness. No deformity Neurological: Alert and oriented to person, place, and time. Normal strength. CN II-VII intact. No sensory deficit. GCS eye subscore is 4. GCS verbal subscore is 5. GCS motor subscore is 6. Normal coordination Skin: Skin is warm and dry. No rash noted. No pallor. Normal capillary refill. Psychiatric: Normal mood. Normal affect. Const: Vital Signs, click to edit/add: Vital Signs - 24 hr 09/20/24 15:29 Temperature 98.0 F Pulse Rate [Right Pulse Oximeter] 94 Respiratory Rate 18 Blood Pressure [Ri ght Upper Arm] 123/58 L Pulse Oximetry 99 Oxygen Delivery Me thod Room Air Course Course ED Course: Patient was alert and oriented and neurologically intact upon arrival to the ER. Breathing was normal. Oxygen sats 98% room air when she arrived by EMS. Lung sounds were clear any pull. She did have remarkable improvement after the nebs given by paramedics. She agrees to stay here in the ER for a period of observation. Will try p.o. challenge, careful monitoring for any signs of recurrent bronchospasm. Vital Signs Vital signs: Initial Vital Signs Temperature 98.0 F 09/20/24 15:29 Temperature Source Temporal Artery Scan 09/20/24 15:29 Pulse Rate 94 09/20/24 15:29 Pulse Rhythm Regular 09/20/24 15:29 Respiratory Rate 18 09/20/24 15:29 Blood Pressure 123/58 L 09/20/24 15:29 Blood Pressure Mean 79 09/20/24 15:29 Blood Pressure Position Supine 09/20/24 15:29 Pulse Oximetry 99 09/20/24 15:29 Oxygen Delivery Method Room Air 09/20/24 15:29 Vital Signs Temperature 98.0 F 09/20/24 15:29 Pulse Rate 94 09/20/24 15:29 Respiratory Rate 18 09/20/24 15:29 Blood Pressure 123/58 L 09/20/24 15:29 Pulse Oximetry 99 09/20/24 15:29 Oxygen Delivery Method Room Air 09/20/24 15:29 Temperature 98.0 F 09/20/24 15:29 Pulse Rate 94 09/20/24 15:29 Respiratory Rate 18 09/20/24 15:29 Blood Pressure 123/58 L 09/20/24 15:29 Pulse Oximetry 99 09/20/24 15:29 Oxygen Delivery Method Room Air 09/20/24 15:29 Medical Decision Making MDM Narrative Medical decision making narrative: This patient presents for evaluation of shortness of breath and wheezing. She was brought in by EMS after becoming acutely shortness of breath while she was running at [employer] today. Apparently initially she was quite wheezy and tight and is now completely opened up after the albuterol and DuoNeb administered in route. History is consistent with asthma exacerbation. Here in the ER she had normal breathing, normal oxygen saturations and clear lung. A broad differential was considered including asthma, pneumonia, bronchitis, pneumothorax, viral induced wheezing, allergic phenomena, among others. Also consider other etiologies such as panic attack or anxiety. She does endorse a lot of stress at school and beginning her senior thesis and applying for graduate school. At this point she is calm, conversant, working on her graduate the cyst on her laptop while she is being observed here in the ER. Certainly does not require psychiatric admission at this time. We observed the patient here in the ER for any signs of recurrent wheezing or recurrence. She did well with no symptoms. There are no signs at this point of any serious etiologies including those mentioned above. She continues to feel back to normal after interventions by EMS. No indication for hospitalization at this time including no hypoxia, no marked increase in respiratory rate, and there are minimal to no retractions. Supportive outpatient management is indicated, medications for discharge noted above. Close followup with primary care physician. She really does not currently have good primary care. She is from [place] and has not been able to get reliable primary care through the [facility]. I will give her a phone number for referral to the [facility] in clinic primary care office. She also asked for a Rue ?referral? to a specialist. I told her I am not able to do a specific referral but I will give her contact information for the [facility] pulmonology clinic. I would recommend that she add 1st try to establish good primary care to make sure her meds are optimized from a primary care standpoint. Return if increased wheezing, progressive shortness of breath, develops fever greater than 102. Questions answered and patient comfortable with plan. Discharge Plan Discharge Clinical Impression: Asthma exacerbation Patient Disposition: Home, Self-Care Condition: Stable Instructions: Asthma (DC) Additional Instructions: As we discussed, please return to the ER right away if you have worsening trouble breathing or shortness of breath that is not relieved by your nebulizer. Return to the ER right away if you have any other concerns or other problems such as fever, severe cough, chest pain, weakness, or fainting. To help treat your asthma you can use your inhaler or nebulizer as needed every 4 hours. Take the prednisone once daily for the next 5 days. Please arrange a follow-up appointment with primary care within the next 1-2 weeks. To get primary care here in [place] you can call [phone] To make an appointment with a supervisor volunteer services, if you want to see a specialist, you can call [facility] pulmonology care at [phone]. You may want to follow up with primary care first and make sure that [facility] is in your insurance network. Prescriptions: No Action fluoxetine [Prozac] 40 mg capsule 40 mg PO QAM albuterol sulfate 90 mcg/actuation HFA aerosol inhaler 1 puff inhalation Lo Loestrin Fe 1 mg-10 mcg (24)/10 mcg (2) tablet 1 tab PO DAILY fluoxetine 60 mg tablet 60 mg PO DAILY buspirone 10 mg tablet 10 mg PO BID fluticasone propion-salmeterol [Advair Diskus] 100-50 mcg/dose blister with device 1 inh inhalation DAILY prednisone 20 mg tablet See Rx Instructions .ROUTE .COMPLEX Qty: 13 0RF Rx Instructions: Take 40 mg daily for 3 days from to 01/09 Take 30 mg for 2 days from 01/10 to be 4 Take 20 mg for 2 days from 01/12 to 6 Take 10 mg for 2 days from 01/14 to 01/15 Pills can be cut in half doxycycline monohydrate 100 mg capsule 100 mg PO BID Follow Up/Referrals: Provider,Not a Local [Primary Care Provider] - Stand Alone Forms: [employer] Info Instructions
--- OUTSIDE RECORDS SUMMARY | 2024-09-20 16:03 | XMS_ITS | Continuity of Care Document ---
Author Name Nw[facility]IN User [place] Address Unknown Organization Unknown Address Unknown Procedures FILTER APPLIED:Only known Procedures with Onset Date within the last 5 years Procedure Date Procedure Provider Additionjuan francisco funez Information Status SELF CARE MNGMENT TRAINING (02261) Completed ASSAY OF TROPONIN QUANT (04269) Completed EMERGENCY DEPT VISIT MOD MDM (05576) Completed RESP VIRUS 3-5 TARGETS (92012) Completed ROUTINE VENIPUNCTURE (75174) Completed AIRWAY INHALATION TREATMENT (34329) Completed ELECTROCARDIOGRAM TRACING (01573) Completed COMPLETE CBC W/AUTO DIFF WBC (26559) Completed X-RAY EXAM CHEST 2 VIEWS (15108) Completed METABOLIC PANEL TOTAL CA (89714) Completed EMERGENCY DEPT VISIT HI MDM (62157) Completed CHORIONIC GONADOTROPIN ASSAY (06924) Completed NEUROMUSCULAR REEDUCATION (99425) Completed PT EVAL MOD COMPLEX 30 MIN (57421) Completed MANUAL THERAPY 1/> [facility] (85545) Completed THERAPEUTIC EXERCISES (82980) Completed X-RAY EXAM OF KNEE 3 (76299) Completed EMERGENCY DEPT VISIT MOD MDM (18960) Completed EMERGENCY DEPT VISIT LOW MDM (86000) Completed Encounters FILTER APPLIED:Only known Encounters with Admission Date within the last 5 years Encounter Location Admission Discharge Billing Code [employer] [facility] Zhao Chu
--- OUTSIDE RECORDS SUMMARY | 2024-09-20 16:03 | XMS_ITS | Clinical Summary ---
Author Organization [facility] [address] [employer] [address] Address [address] [facility] [place] [address] Care Team Providers Care Embedded Systems Engineer Name Role Phone No, Pcp MUNITIONS WORKER Primary Care Provider Unavailabl e Allergies Active [...] Adults 18 yrs or above (or HM Modifier)([facility]) 2021 Hepatitis C Virus Infection in Adolescents and Adults: Screening (or Modifier) ([facility]) 2021 SDOH Screening Reminder: Ruthy bhatia for all adults ([facility]) 2021 Tobacco Smoking Cessation: i n Adults excluding Women: Behavioral and Pharmacotherapy Interventions ([facility]) 2021 DTaP/Tdap/Td Vaccines ([facility]) (1 - Tdap) 2022 Lipid Screening: Once [...] Vaccine Screening: Initial Series and Booster Status ([facility]) (2023- season) 2024 Zoster/Shingles Vaccine Seri es Screening: Adults aged 18+ yrs (or HM Modifiers)([facility] ) (1 of 2) 2053 Pneumococcal Vaccination Scr eening: Pts 0-19 & 19-64 yrs of age ([facility] ) Aged Out No longer eligible based on patient's age to complete this topic Medical Devices Not on file Insurance [facility] Care Teams Embedded Systems Engineer Relationship Specialty Start Date End Date No, Pcp, MUNITIONS WORKER N/A Do not use PCP - General 08/30/16
--- OUTSIDE RECORDS SUMMARY | 2024-09-20 16:03 | XMS_ITS | Clinical Summary ---
Author Organization [employer] [facility] Address [place], [place] [address] Care Team Providers Care Malted Milk Masher Name Role Phone Pcp, No Primary Care [...] age to complete this topic Care Teams Malted Milk Masher Relationship Specialty Start Date End Date Pcp, No . PCP - General 12/27/22
== END 2024-09-20 17:06 | disposition home or self-care (01) ==
PROVIDERS: Emergency Provider Emergency Medicine
DX: J45.901 Unspecified asthma with (acute) exacerbation (principal)
CPT/HCPCS: 99283; 99284

== ENCOUNTER 2024-12-15 14:08 | Emergency (ER) | payer OTHER, SELFPAY ==
--- OUTSIDE RECORDS SUMMARY | 2024-12-15 14:10 | XMS_ITS | Clinical Summary ---
Author Organization [employer] [facility] Address [address] [place] [id number] Care Team Providers Care Spirits Model Name Role Phone Pcp, No Primary Care [...] for age 21-65 2024 COVID-19 vaccine series (2023- season) 2024 09/19/2021 Influenza Vaccine (Season Ended) 2025 Meningococcal series for age 11-21 Aged Out No longer eligible based on patient's age to complete this topic Pneumococcal series for age 6-49 Aged Out No longer eligible based on patient's age to complete this topic Care Teams Spirits Model Relationship Specialty Start Date End Date Pcp, No . PCP - General 12/27/22
[2024-12-15 14:19] VITALS: BP 112/71; PULSE 81; RESP 18; TEMP 36.6; O2SAT 98; BMI 27.4
--- NOTE | 2024-12-15 14:45 | ED_ITS ---
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 She absolutely has no recollection as to what happened. It was sore afterwards. She woke up yesterday morning and had significant pain with movement. She has just been trying to rest, use ibuprofen. It continues to hurt in the wrist. She will get pain shooting up the forearm and down into the hand at times. No numbness or tingling. MD complaint: injury to: right Related Data Home Medications ?Medication ?Instructions ?Recorded ?Confirmed No Known Home Medications 12/15/24 12/15/24 Allergies Allergy/AdvReac Type Severity Reaction Status Date / Time amoxicillin Allergy Intermediate Rash Verified 10/29/24 14:38 Review of Systems Narrative: As per HPI. PFSH PFS Medical History Asthma ?J45.909 - Unspecified asthma, uncomplicated (ICD-10) Depression ?F32.A - Depression, unspecified (ICD-10) OCD (obsessive compulsive disorder) ?F42.9 - Obsessive-compulsive disorder, unspecified (ICD-10) Surgical History History of colonoscopy ?Z98.890 - Other specified postprocedural states (ICD-10) History of endoscopy ?Z98.890 - Other specified postprocedural states (ICD-10) Social History Narrative: [employer] student. Exercises 5 to 7 times a day. Nonsmoker. Use alcohol 1 to 2 times a week. No recreational drug use. No concerns with safety or abuse. What is your current living situation?: I presently have a place to live Problems where you live: declined to answer In the past 12 months, utilities in danger of being shut off: no In past 12 months, lack of transportation kept you from medical appts, meetings, work, or getting things needed for daily living: no In the past 12 mos, have been you worried that your food would run out before you had money to buy more?: never true In the past 12 mos, the food you bought just didn't last and you didn't have money to buy more?: never true Smoking Status: Never smoker Do you use any of these nicotine containing products: None How often do you have a drink containing alcohol: monthly or less How often do you have six or more drinks on one occasion: Never AUDIT-C Alcohol total score: 1 Non-prescribed substance use: marijuana (any form) Non-prescribed substance use details: occasional edibles How often does anyone, including family, friends and others, physically hurt you : never How often does anyone, including family, friends and others, insult or talk down to you: rarely How often does anyone, including family, friends and others, threaten you with harm: never How often does anyone, including family, friends and others, scream or curse at you: never service: No Health Related Social Needs: Other personal risk factors, not elsewhere cl assified (Z91.89) Exam Const: Vital Signs, click to edit/add: Vital Signs - 24 hr 12/15/24 14:19 Temperature 97.8 F Pulse Rate [Pulse Oximeter] 81 Respiratory Rate 18 Blood Pressure [Ri ght Upper Arm] 112/71 Pulse Oximetry 98 Oxygen Delivery Me thod Room Air This 19-year-old female is alert, interactive, no apparent distress. She has no visible ecchymosis but the right wrist looks to be slightly swollen. There is no erythema. No snuffbox tenderness. Her pain is predominantly on the dorsal surface in the medial wrist area. She can do some flexion extension of the wrist although it is painful. There is no pain in her elbow, she can flex and extend her fingers but she does state that movement of the fingers does translate some pain back into her wrist. Distal sensation the fingers is normal, the fingers are warm, normal cap refill. Documenting provider has reviewed patient's vital signs: yes Course Course ED Course: Have discussed with patient that we will x-ray her wrist. She is in agreement with this plan. Need to rule out fracture. It is possible that this is just ligamentous or soft tissue with wrist sprain but imaging will help us rule out underlying fracture. Reevaluation(s) Time of Reevaluation #1: 15:37 Reevaluation #1: Reviewed x-ray findings with patient. Did give her a copy of the report. She is clinically tender along the radius in the distribution outlined per the report for fracture from the x-ray. She was placed in a short-arm splint with Ortho Glass using 2 in material, splint material placed on the dorsal and volar surfaces. Vital Signs Vital signs: Initial Vital Signs Temperature 97.8 F 12/15/24 14:19 Temperature Source Temporal Artery Scan 12/15/24 14:19 Pulse Rate 81 12/15/24 14:19 Respiratory Rate 18 12/15/24 14:19 Blood Pressure 112/71 12/15/24 14:19 Blood Pressure Mean 84 12/15/24 14:19 Blood Pressure Position Sitting 12/15/24 14:19 Pulse Oximetry 98 12/15/24 14:19 Oxygen Delivery Method Room Air 12/15/24 14:19 Vital Signs Temperature 97.8 F 12/15/24 14:19 Pulse Rate 81 12/15/24 14:19 Respiratory Rate 18 12/15/24 14:19 Blood Pressure 112/71 12/15/24 14:19 Pulse Oximetry 98 12/15/24 14:19 Oxygen Delivery Method Room Air 12/15/24 14:19 Temperature 97.8 F 12/15/24 14:19 Pulse Rate 81 12/15/24 14:19 Respiratory Rate 18 12/15/24 14:19 Blood Pressure 112/71 12/15/24 14:19 Pulse Oximetry 98 12/15/24 14:19 Oxygen Delivery Method Room Air 12/15/24 14:19 MDM - Extremity Injury (Upper) Imaging Data XR wrist right: Attestation: I have reviewed the pertinent imaging results. Radiologist's impression: Patient: LINNEA MACIAS Facility:?[facility] Patient ID:?[id number] Site Patient ID:?[id number]. Site :?[id number] Study:?XRay-Extremity Right WRIST 3V-12/15/2024 3:14:22 PM Ordering Physician:John Kumar Final Report: Indication: Injury Technique: Right wrist 3 view Comparison: None Findings: Bones: Alignment is normal. Possible nondisplaced fracture of the base of the radial styloid. Joint spaces: Unremarkable. Soft tissues: Unremarkable. Impression: Possible nondisplaced fracture of the base of the radial styloid. Consider follow-up radiographs in 5-7 days for reassessment. Dictated by Adore Negrete MD @ 12/15/2024 3:19:37 PM (Electronic Signature) Discharge Plan Discharge Clinical Impression: Distal radius fracture, right Qualifiers: Encounter type: initial encounter Fracture type: closed Fracture morphology: unspecified fracture morphology Qualified Code(s): S52.501A - Unspecified fracture of the lower end of right radius, initial encounter for closed fracture Patient Disposition: Home, Self-Care Condition: Stable Instructions: Wrist Fracture in Adults (ED) Additional Instructions: Need to keep splint material clean and dry. Can ice, elevate arm as much as able to the next few days to help decrease pain and swelling. Use Tylenol and ibuprofen per bottle directions as needed for pain control. Contact the orthopedic office for follow-up appointment, phone number is [phone]. Activity Level: Activity as Tolerated Prescriptions: No Action No Known Home Medications Follow Up/Referrals: Provider,Not a Local [Primary Care Provider] - Stand Alone Forms: [employer] Info Instructions
--- NOTE | 2024-12-15 14:45 | CRLHL7_ITS ---
For Patients: As a result of the Cures Act, medical imaging exams and procedure reports are released immediately into your electronic medical record. You may view this report before your referring provider. If you have questions, please contact your health care provider. Indication: Injury Technique: Right wrist 3 view Comparison: None Findings: Bones: Alignment is normal. Possible nondisplaced fracture of the base of the radial styloid. Joint spaces: Unremarkable. Soft tissues: Unremarkable. Impression: Possible nondisplaced fracture of the base of the radial styloid. Consider follow-up radiographs in 5-7 days for reassessment. Dictated by Adore Negrete MD @ 12/15/2024 3:19:37 PM (Electronically Signed)
--- OUTSIDE RECORDS SUMMARY | 2024-12-15 14:55 | XMS_ITS | Clinical Summary ---
Author Organization [employer] [facility] Address [address] [place] [address] Care Team Providers Care Public Speaking Instructor Name Role Phone Pcp, No Primary Care [...] age to complete this topic Care Teams Public Speaking Instructor Relationship Specialty Start Date End Date Pcp, No . PCP - General 12/27/22
== END 2024-12-15 15:49 | disposition home or self-care (01) ==
PROVIDERS: Emergency Provider Family Medicine
DX: S52.501A Unspecified fracture of the lower end of right radius, initial encounter for closed fracture (principal); Y93.63 Activity, rugby
CPT/HCPCS: 29125; 73110; 99283

== ENCOUNTER 2024-12-22 17:39 | Emergency (ER) | payer OTHER, SELFPAY ==
--- OUTSIDE RECORDS SUMMARY | 2024-12-22 17:41 | XMS_ITS | Encounter Summary ---
Author Organization Formerly [facility] Address [address] [address] Care Team Providers Care Production Assembly Operator Name Role Phone Unavailable Primary Care Provider Unavailabl e Encounter Details Date Type Department Care Team (Late Contact Info) Description 12/15/2024 Ancillary Procedure [facility] [address] [place] [address] Provider, Foreign Images [address] [place] [address] Social History Tobacco Use Types Packs/Day Years Used Date Smoking Tobacco: Never Assessed Comments Unknown Sex and Gender Information Value Date Recorded Sex Assigned at Not on file Legal Sex Female 10:21 AM CDT Gender Identity Not on file Sexual Orientation Not on file documented as of this encounter Plan of Treatment Upcoming Encounters Date Type Department Care Team (Late Contact Info) Description 01/01/2025 9:15 AM CDT Appointment [facility] [address] [place] [address] Octavio Calderon MD [address] [place] [address] YESSENIA CEBALLOS [id number] documented as of this encounter Procedures Procedure Name Priority Date/Time Associated Diagnosis Comments FOREIGN IMAGE(S) XR WRIST RT Routine 12/15/2024 12:00 AM CDT documented in this encounter Results * Foreign Image(S) XR Wrist Rt (12/15/2024 12:00 AM CDT) Narrative POCT - 12/18/2024 1:06 PM CDT These outside images have been uploaded into PACS. If the results were provided, they will be located in the patient's chart under the Media or Imaging tab. us Foreign Images Provider RAD NON-REPORTABLES Gretchen funez Result POCT documented in this encounter Visit Diagnoses Not on filedocumented in this encounter
--- OUTSIDE RECORDS SUMMARY | 2024-12-22 17:41 | XMS_ITS | Encounter Summary ---
Author Organization [facility] Address [address] [place] [address] Care Team Providers Care Dobby Loom Weaver Name Role Phone Pcp, Pt Declines Primary Care Provider [phone] Reason for Visit * Procedure/Equipment (Routine) - Closed Specialty Diagnoses / Procedures Referred By Contac t Referred To Contact Diagnoses Right wrist pain Procedures MR Wrist [place] [address] [place] [address] YESSENIA CEBALLOS [id number] Phone: tel: fax: Referral ID Status Reason Start Date Expiration Date Visits Re quested Visits Authorized [id number] Closed 12/18/2024 03/19/2026 1 1 Encounter Details Date Type Department Care Team (Latest Contact Info) Description 12/22/2024 4:40 PM CDT Ancillary Procedure [facility] [address] [place] [address] Octavio Calderon MD [address] YESSENIA CEBALLOS [id number] Right wrist pain Social History Tobacco Use Types Packs/Day Years Used Date Smoking Tobacco: Never Assessed Comments Unknown Sex and Gender Information Value Date Recorded Sex Assigned at Not on file Legal Sex Female 10:21 AM CDT Gender Identity Not on file Sexual Orientation Not on file documented as of this encounter Plan of Treatment Upcoming Encounters Date Type Department Care Team (Late st Contact Info) Description 01/01/2025 9:15 AM CDT Appointment [facility] [address] [place] [address] Octavio Calderon MD [facility] YESSENIA CEBALLOS [phone] Pending Results Name Type Priority Associated Diagnoses Date /Time MR Wrist Rt WO IV Cont Imaging New Routine Right wrist pain 12/22/2024 4:31 PM CDT documented as of this encounter Visit Diagnoses Diagnosis Right wrist pain Pain in joint, forearm documented in this encounter Care Teams Dobby Loom Weaver Relationship Specialty Start Date End Date Pcp, [place] [address] PCP - General 12/17/24 documented as of this encounter
--- OUTSIDE RECORDS SUMMARY | 2024-12-22 17:41 | XMS_ITS | Encounter Summary ---
Author Organization [facility]ly [facility] Address [address] [address] Care Team Providers Care Thread Laster Name Role Phone Pcp, Pt Declines Primary Care Provider [phone] Reason for Referral * Procedure/Equipment (Routine) - Closed Specialty Diagnoses / Procedures Referred By Kyra qureshi Referred To Contact Diagnoses Right wrist pain Procedures MR Wrist Rt WO IV Cont Octavio Calderon MD [address] [place] [address] [place] [address] Phone: tel: fax: Referral ID Status Reason Start Date Expiration Date Visits Re quested Visits Authorized [id number] Closed 12/18/2024 03/19/2026 1 1 Reason for Visit * Reason Comments CONSULT Right wrist fracture * Consult/Transfer Care (Routine) - New Request Specialty Diagnoses / Procedures Referred By Contchandana qureshi Referred To Contact Orthopedics Diagnoses Carpal instability of right wrist Alisa Dolan PA-C [facility] [address] [place] [address] Phone: tel: fax: Referral ID Status Reason Start Date Expiration Date V isits Requested Visits Authorized [id number] New Request 12/17/2024 03/18/2026 1 1 Encounter Details Date Type Department Care Team ([facility] st Contact Info) Description 12/18/2024 1:00 PM CDT Office Visit [facility] [address] [place] [address] Octavio Calderon MD [address] [place] [address] YESSENIA CEBALLOS [phone] Right wrist pain (Primary Dx) Social History Tobacco Use Types Packs/Day Years Used Date Smoking Tobacco: Never Assessed Comments Unknown Sex and Gender Information Value Date Recorded Sex Assigned at Not on file Legal Sex Female 10:21 AM CDT Gender Identity Not on file Sexual Orientation Not on file documented as of this encounter Progress Notes * Octavio Calderon MD - 12/18/2024 1:00 PM CDT 19 y/o F with right wrist pain Playing rugby ? Of rt RFx and/r lig ment Get MRI This office note has been dictated. Octavio Calderon MD documented in this encounter Plan of Treatment Upcoming Encounters Date Type Department Care Team (Late st Contact Info) Description 01/01/2025 9:15 AM CDT Appointment [facility] [address] [place] [address] Octavio Calderon MD [address] [place] [address] YESSENIA CEBALLOS [phone] Pending Results Name Type Priority Associated Diagnoses Date /Time MR Wrist Rt WO IV Cont Imaging New Routine Right wrist pain 12/22/2024 4:31 PM CDT Scheduled Orders Name Type Priority Associated Diagnoses Orde r Schedule MR Wrist Rt WO IV Cont Imaging New Routine Right wrist pain Expected: 12/18/2024 (Approximate), Expires: 12/18/2025 documented as of this encounter Visit Diagnoses Diagnosis Right wrist pain- Primary Pain in joint, forearm documented in this encounter Care Teams Thread Laster Relationship Specialty Start Date End Date Pcp, [place] [address] PCP - General 12/17/24 documented as of this encounter
--- OUTSIDE RECORDS SUMMARY | 2024-12-22 17:41 | XMS_ITS | Clinical Summary ---
Author Organization [facility] Address [address] [place] [address] Care Team Providers Care Calender Runner Name Role Phone Pcp, No Primary Care [...] age to complete this topic Care Teams Calender Runner Relationship Specialty Start Date End Date Pcp, No . PCP - General 12/27/22
--- OUTSIDE RECORDS SUMMARY | 2024-12-22 17:41 | XMS_ITS | Encounter Summary ---
Author Organization Counts include [facility] beds at the [facility] Address [address], [place] [address] Care Team Providers Care Leveling Machine Operator Name Role Phone PcpMargarito MD Primary Care Provider [phone] Encounter Details Date Type Department Care Team (Late st Contact Info) Description 12/22/2024 Notes/Orders [facility] [address] [place] [address] Octavio Calderon MD [address] [place] [address] YESSENIA CEBALLOS [phone] Encounter for cast change (Primary Dx) Social History Tobacco Use Types [...] AM CDT Appointment [facility] [address] [place] [address] Octavio Calderon MD [address] [place] [address] YESSENIA CEBALLOS [phone] documented as of this encounter Visit Diagnoses Diagnosis Encounter for cast change- Primary documented in this encounter Care Teams Leveling Machine Operator Relationship Specialty Start Date End Date Margarito Altamirano MD [place], [place] [address] PCP - General 12/17/24 documented as of this encounter
--- OUTSIDE RECORDS SUMMARY | 2024-12-22 17:41 | XMS_ITS | Encounter Summary ---
Author Organization [facility] Address [address], [place] [address] Care Team Providers Care Real Estate Administrator Name Role Phone Pcp, Pt Declines Primary Care Provider [phone] Encounter Details Date Type Department Care Team (Late st Contact Info) Description 12/17/2024 12:05 AM CDT Ancillary Procedure [facility] [address] [place] [address] Provider, Foreign Images [address] [place] [address] Social History Tobacco Use Types Packs/Day Years [...] Info) Description 01/01/2025 9:15 AM CDT Appointment [facility] [address] [place], [place] [address] Octavio Calderon MD [address] [place] [address] YESSENIA CEBALLOS [phone] documented as of this encounter Procedures Procedure Name Priority Date/Time Associated Diagnosis Comments FOREIGN IMAGE(S) XR WRIST RT Routine 12/17/2024 12:05 AM CDT documented in this encounter Results * Foreign Image(S) XR Wrist Rt (12/17/2024 12:05 AM CDT) Narrative POCT - 12/18/2024 1:07 PM CDT These outside images have been uploaded into PACS. If the results were provided, they will be located in the patient's chart under the Media or Imaging tab. us Foreign Images Provider RAD NON-REPORTABLES Gretchen l Result POCT documented in this encounter Visit Diagnoses Not on filedocumented in this encounter Care Teams Real Estate Administrator Relationship Specialty Start Date End Date Pcp, [place] [address] PCP - General 12/17/24 documented as of this encounter
--- OUTSIDE RECORDS SUMMARY | 2024-12-22 17:41 | XMS_ITS | Clinical Summary ---
Author Organization [facility] Address [address] [place] [address] Care Team Providers Care City Collector Name Role Phone Pcp, Pt Stevie MALCOLM Primary Care Provider [phone] Source Comments You are receiving this document as you are listed as the primary care provider,follow-up provider, or the patient has been referred to you for consultation.This is in compliance with the Medicare and[facility] Hospitalcaid EHR Incentive Program,which states Providers who transition their patient to another setting of careor provider of care or refers their patient to another provider of care shouldprovide summary care record for each transition of care or referral. [facility] Allergies Active Allergy Reactions Criticality Noted Date Comments Amoxicillin Rash 12/18/2024 Medications busPIRone (BUSPAR) 10 MG tablet Take 1 Tablet (10 mg) by mouth two times a day. Active fluticasone-salm eterol (ADVAIR HFA) 230-21 mcg/actuation inhaler Inhale 2 Puffs two times a day. Rinse mouth/gargl e after use Active montelukast (SINGULAIR) 10 MG tablet Take 1 Tablet (10 mg) by mouth every evening. Active Active Problems No known active problems Encounters Date Type Department Care Team Description 12/22/2024 4:40 PM CDT Ancillary Procedure [facility] [address] [place] [id number] Octavio Calderon MD Right wrist pain 12/22/2024 Notes/Orders [facility] [address] [place], [place] 22[address] Octavio Calderon MD Encounter for cast change (Primary Dx) 12/18/2024 1:00 PM CDT Office Visit [facility] [address] [place] [address] Octavio Calderon MD Right wrist pain (Primary Dx) 12/17/2024 12:05 AM CDT Ancillary Procedure Radiology PACS [address] [place] [address] Provider, Foreign Images 12/17/2024 Ancillary Procedure Radiology [facility] [address] [place] [address] Provider, Foreign Images 12/15/2024 Ancillary Procedure Radiology [facility] [address] [place] [address] Provider, Foreign Images from Last 3 Months Social History Tobacco Use Types Packs/Day Years Used Date Smoking Tobacco: Never Assessed Comments Unknown Sex and Gender Information Value Date Recorded Sex Assigned at Not on file Legal Sex Female 10:21 AM CDT Gender Identity Not on file Sexual Orientation Not on file Plan of Treatment Upcoming Encounters Date Type Department Care Team (Late st Contact Info) Description 01/01/2025 9:15 AM CDT Appointment [facility] [address] [place] [address] Octavio Calderon MD [address] [place] [address] YESSENIA CEBALLOS [address] Health Maintenance Due Date Last Done Comments Cervical Cancer Screening Due 2003 Chlamydia 2003 Hep C Screening (Preventive Services) 2003 MenB Immunization Discussion 2003 HIV Screening (Preventive Services) 2019 Adult Preventive Visit 2021 HepB (1) 2022 DTaP/Tdap/Td (6 - Tdap) 03/22/2025 03/22/20 15, 06/17/2007, 2003, Additional history exists Zoster/Shingles (1 of 2) 2053 Hib Aged Out 2003, 07/11, 2003 No longer eligible based on patient's age to complete this topic Pneumococcal Completed 06/30/2004, 09/10, 2003, Additional history exists IPV (Polio) Completed 06/17/2007, 06/11, 2003, Additional history exists HPV Vaccine Completed 07/11/2017, 07/07/2016 MCV4 Completed 09/08/2019, 03/22/2015 HepA Completed 04/13/2021, 09/08/2019 COVID-19 Vaccine Completed 07/16/2024, 04/2022, 09/19/2021 Influenza Completed 07/16/2024, 04/2022, 07/09/2019, Additional history exists Procedures Procedure Name Priority Date/Time Associated Diagnosis Comments FOREIGN IMAGE(S) XR WRIST RT Routine 12/17/2024 12:05 AM CDT FOREIGN IMAGE(S) XR WRIST RT Routine 12/17/2024 12:00 AM CDT FOREIGN IMAGE(S) XR WRIST RT Routine 12/15/2024 12:00 AM CDT from Last 3 Months Results * Foreign Image(S) XR Wrist Rt (12/17/2024 12:05 AM CDT) Only the most recent of3 resultswithin the time period is included. Narrative POCT - 12/18/2024 1:07 PM CDT These outside images have been uploaded into PACS. If the results were provided, they will be located in the patient's chart under the Media or Imaging tab. us Foreign Images Provider RAD NON-REPORTABLES Gretchen l Result POCT from Last 3 Months Insurance [facility] Care Teams City Collector Relationship Specialty Start Date End Date Pcp, [place] [address] PCP - General 12/17/24
--- OUTSIDE RECORDS SUMMARY | 2024-12-22 17:41 | XMS_ITS | Encounter Summary ---
Author Organization [facility] Address [address], [place] [address] Care Team Providers Care Forest Science Professor Name Role Phone Pcp, Pt Declines Primary Care Provider [phone] Encounter Details Date Type Department Care Team ([facility] Contact Info) Description 12/17/2024 Ancillary Procedure [facility] [address] [place] [address] Provider, Foreign Images [facility] [place] [address] Social History Tobacco Use Types Packs/Day Years Used Date Smoking Tobacco: Never Assessed Comments Unknown Sex and Gender Information Value Date Recorded Sex Assigned at Not on file Legal Sex Female 10:21 AM CDT Gender Identity Not on file Sexual Orientation Not on file documented as of this encounter Plan of Treatment Upcoming Encounters Date Type Department Care Team ([facility] Contact Info) Description 01/01/2025 9:15 AM CDT Appointment [facility] [place] [address] [place] [address] Octavio Calderon MD [address] [place] [address] YESSENIA CEBALLOS [phone] documented as of this encounter Procedures Procedure Name Priority Date/Time Associated Diagnosis Comments FOREIGN IMAGE(S) XR WRIST RT Routine 12/17/2024 12:00 AM CDT documented in this encounter Results * Foreign Image(S) XR Wrist Rt (12/17/2024 12:00 AM CDT) Narrative POCT - 12/18/2024 1:06 PM CDT These outside images have been uploaded into PACS. If the results were provided, they will be located in the patient's chart under the Media or Imaging tab. us Foreign Images Provider RAD NON-REPORTABLES Gretchen l Result POCT documented in this encounter Visit Diagnoses Not on filedocumented in this encounter Care Teams Forest Science Professor Relationship Specialty Start Date End Date Pcp, [place] [address] PCP - General 12/17/24 documented as of this encounter
[2024-12-22 17:43] VITALS: BP 116/64; PULSE 85; RESP 18; TEMP 37.1; O2SAT 99; BMI 27.4
--- OUTSIDE RECORDS SUMMARY | 2024-12-22 19:01 | XMS_ITS | Encounter Summary ---
Author Organization [facility] Address [address], [place] [address] Care Team Providers Care Glove Factory Sewer Name Role Phone PcpMargarito MD Primary Care Provider [phone] Encounter Details Date Type Department Care Team (Late st Contact Info) Description 12/22/2024 Notes/Orders [facility] [place] [address] [place] [address] Octavio Calderon MD [address] [place] [address] YESSENIA CEBALLOS [address] Encounter for cast change (Primary Dx) Social [...] AM CDT Appointment [facility] [address] [place] [address] Octavio Calderon MD [address] [place] [address] YESSENIA CEBALLOS [phone] documented as of this encounter Visit Diagnoses Diagnosis Encounter for cast change- Primary documented in this encounter Care Teams Glove Factory Sewer Relationship Specialty Start Date End Date Margarito Altamirano MD [place], [place] [address] PCP - General 12/17/24 documented as of this encounter
--- OUTSIDE RECORDS SUMMARY | 2024-12-22 19:01 | XMS_ITS | Encounter Summary ---
Author Organization [facility] Address [address] [place] [address] Care Team Providers Care Auricular Detoxification Specialist Name Role Phone Pcp, Pt Declines Primary Care Provider [phone] Reason for Visit * Procedure/Equipment (Routine) - Closed Specialty Diagnoses / Procedures Referred By Contac t Referred To Contact Diagnoses Right wrist pain Procedures MR [place]rist [place] [address] [place] [address] YESSENIA CEBALLOS [address] Phone: tel: fax: Referral ID Status Reason Start Date Expiration Date Visits Re quested Visits Authorized [id number] Closed 12/18/2024 03/19/2026 1 1 Encounter Details Date Type Department Care Team (Latest Contact Info) Description 12/22/2024 4:40 PM CDT Ancillary Procedure [facility] [address] [place] [address] Octavio Calderon MD [address] [place] YESSENIA CEBALLOS [phone] Right wrist pain Social History Tobacco Use [...] AM CDT Appointment [facility] [address] [place] [address] Octavio Calderon MD [facility] [place] YESSENIA CEBALLOS [address] Pending Results Name Type Priority Associated Diagnoses Date /Time MR Wrist Rt WO IV Cont Imaging New Routine Right wrist pain 12/22/2024 4:31 PM CDT documented as of this encounter Visit Diagnoses Diagnosis Right wrist pain Pain in joint, forearm documented in this encounter Care Teams Auricular Detoxification Specialist Relationship Specialty Start Date End Date Pcp, [place] [address] PCP - General 12/17/24 documented as of this encounter
--- OUTSIDE RECORDS SUMMARY | 2024-12-22 19:01 | XMS_ITS | Encounter Summary ---
Author Organization [facility] Address [address] [address] Care Team Providers Care Shock Absorber Installer Name Role Phone Pcp, Pt Declines Primary Care Provider [phone] Encounter Details Date Type Department Care Team ([facility] Contact Info) Description 12/17/2024 Ancillary Procedure [facility] [address] [place] [address] Provider, Foreign Images [facility] [place] [address] Social History Tobacco Use Types Packs/Day Years Used Date Smoking Tobacco: Never Assessed Comments Unknown Sex and Gender Information Value Date Recorded Sex Assigned at Not on file Legal Sex Female 10:21 AM CDT Gender Identity Not on file Sexual Orientation Not on file documented as of this encounter Plan of Treatment Upcoming Encounters Date Type Department Care Team ([facility] Contact Info) Description 01/01/2025 9:15 AM CDT Appointment [facility] [place] [address] [place] [address] Octavio Calderon MD [address] [place] [address] YESSENIA CEBALLOS [phone] documented as of this encounter Procedures Procedure [...] on filedocumented in this encounter Care Teams Shock Absorber Installer Relationship Specialty Start Date End Date Pcp, [place] [address] PCP - General 12/17/24 documented as of this encounter
--- OUTSIDE RECORDS SUMMARY | 2024-12-22 19:01 | XMS_ITS | Encounter Summary ---
Author Organization [facility] Address [address], [place] [address] Care Team Providers Care Manager Utilities Name Role Phone Unavailable Primary Care Provider Unavailabl e Encounter Details Date Type Department Care Team (Late Contact Info) Description 12/15/2024 Ancillary Procedure [facility] [address] [place] [address] Provider, Foreign Images [address] [place] [address] Social History Tobacco Use Types Packs/Day Years [...] Info) Description 01/01/2025 9:15 AM CDT Appointment [facility] [address] [place] [address] Octavio Calderon MD [address] [place] [address] YESSENIA CEBALLOS [phone] documented as of this encounter Procedures Procedure [...]
--- OUTSIDE RECORDS SUMMARY | 2024-12-22 19:01 | XMS_ITS | Clinical Summary ---
Author Organization [facility] Address [address] [place] [address] Care Team Providers Care Assistant Field Hockey Coach Name Role Phone Pcp, Pt Stevie MALCOLM Primary Care Provider [phone] Source Comments You are receiving this document as you are listed as the primary care provider,follow-up provider, or the patient has been referred to you for consultation.This is in compliance with the Medicare andSt. [facility] Hospitalcaid EHR Incentive Program,which states Providers who transition their patient to another setting of careor provider of care or refers their patient to another provider of care shouldprovide summary care record for each transition of care or referral. [facility] Allergies Active Allergy Reactions Criticality Noted [...] 4:40 PM CDT Ancillary Procedure [facility] [address] [place] [address] Octavio Calderon MD Right wrist pain 12/22/2024 Notes/Orders [facility] [place] [address] [place], [place] [address] Octavio Calderon MD Encounter for cast change (Primary Dx) 12/18/2024 1:00 PM CDT Office Visit [facility] [address] [place] [address] Octavio Calderon MD Right wrist pain (Primary Dx) 12/17/2024 12:05 AM CDT Ancillary Procedure Radiology PACS [address] [place] [address] Provider, Foreign Images 12/17/2024 Ancillary Procedure Radiology [facility] [address] [place] [address] Provider, Foreign Images 12/15/2024 Ancillary Procedure Radiology [facility] [address] [place] [address] Provider, Foreign Images from Last 3 Months [...] Info) Description 01/01/2025 9:15 AM CDT Appointment [facility] [address] [place] [address] Octavio Calderon MD [address] [place] [address] YESSENIA CEBALLOS [address] Health Maintenance Due Date Last Done Comments [...] Result POCT from Last 3 Months Insurance [facility] Care Teams Assistant Field Hockey Coach Relationship Specialty Start Date End Date Pcp, [place] [address] PCP - General 12/17/24
--- OUTSIDE RECORDS SUMMARY | 2024-12-22 19:01 | XMS_ITS | Encounter Summary ---
Author Organization Formerly [facility] Address [address], [place] [address] Care Team Providers Care Architecture Internship Name Role Phone Pcp, Pt Declines Primary Care Provider [phone] Reason for Referral * Procedure/Equipment (Routine) - Closed Specialty Diagnoses / Procedures Referred By Kyra qureshi Referred To Contact Diagnoses Right wrist pain Procedures MR Wrist Rt WO IV Cont Octavio Calderon MD [address] [place] [address] [place] [address] Phone: tel: fax: Referral ID Status Reason Start Date Expiration Date Visits Re quested Visits Authorized [id number] Closed 12/18/2024 03/19/2026 1 1 Reason for Visit * Reason Comments CONSULT Right wrist fracture * Consult/Transfer Care (Routine) - New Request Specialty Diagnoses / Procedures Referred By Contchandana qureshi Referred To Contact Orthopedics Diagnoses Carpal instability of right wrist Alisa Dolan PA-C [facility] [address] [place] [address] Phone: tel: fax: Referral ID Status Reason Start Date Expiration Date V isits Requested Visits Authorized [id number] New Request 12/17/2024 03/18/2026 1 1 Encounter Details Date Type Department Care Team ([facility] st Contact Info) Description 12/18/2024 1:00 PM CDT Office Visit [facility] [address] [place] [phone] Octavio Calderon MD [address] [place] [address] YESSENIA CEBALLOS [phone] Right wrist pain (Primary Dx) Social History [...] AM CDT Appointment [facility] [address] [place] [address] Octavio Calderon MD [address] [place] [address] YESSENIA CEBALLOS [phone] Pending Results Name Type Priority Associated Diagnoses [...] forearm documented in this encounter Care Teams Architecture Internship Relationship Specialty Start Date End Date Pcp, [place] [address] PCP - General 12/17/24 documented as of this encounter
--- OUTSIDE RECORDS SUMMARY | 2024-12-22 19:01 | XMS_ITS | Encounter Summary ---
Author Organization [facility] Address [address], [place] [address] Care Team Providers Care Cat Driver Name Role Phone Pcp, Pt Declines Primary Care Provider [phone] Encounter Details Date Type Department Care Team (Late st Contact Info) Description 12/17/2024 12:05 AM CDT Ancillary Procedure [facility] [address] [place] [phone] Provider, Foreign Images [address] [place] [id number] Social History Tobacco Use Types Packs/Day Years [...] Info) Description 01/01/2025 9:15 AM CDT Appointment [facility] [address] [place], [place] [phone] Octavio Calderon MD [address] [place] [address] YESSENIA CEBALLOS [phone] documented as of this encounter Procedures Procedure [...] on filedocumented in this encounter Care Teams Cat Driver Relationship Specialty Start Date End Date Pcp, [place] [address] PCP - General 12/17/24 documented as of this encounter
--- NOTE | 2024-12-22 19:31 | ED.UPPEXIN ---
HPI - Extremity Injury (Upper) General Chief Complaint: Extremity Pain/Injury, Upper Stated Complaint: Rt arm in cast and painful Time Seen by Provider: 12/22/24 17:44 History of Present Illness HPI narrative: This 19-year-old female injured her right wrist and forearm playing rugby last week. She came here and had x-ray that was suspicious for a a ulnar styloid fracture and possible concern of her wrist bones. She followed up with orthopedic clinic and was recommended to follow-up with the hand specialist. She went to [facility] today to have an MRI done of her right wrist. The cast that she had in place was removed at that time and a central sterile technician in the emergency department placed a cast again on her right hand after the MRI. She comes in here because of increased pain with the new cast in place. She reports tingling in her right middle, ring, and little fingers. She feels that the cast is too tight in the ulnar aspect of her wrist. Related Data Home Medications ?Medication ?Instructions ?Recorded ?Confirmed albuterol sulfate 90 mcg/actuation 1 inh inhalation .PRN 12/17/24 12/22/24 aerosol inhaler buspirone 10 mg tablet 20 mg PO BID 12/17/24 12/22/24 fluticasone 250 mcg-salmeterol 50 2 inh inhalation BID 12/17/24 12/22/24 mcg/dose blistr powdr for inhalation (Advair Diskus) montelukast 10 mg tablet 10 mg PO QDAY 12/17/24 12/22/24 (Singulair) norethindrone 1 mg-ethinyl 1 tab PO QDAY 12/17/24 12/22/24 estradiol 10 mcg (24)-iron 10 mcg(2) tablet (Lo Loestrin Fe) Allergies Allergy/AdvReac Type Severity Reaction Status Date / Time amoxicillin Allergy Intermediate Rash Verified 12/22/24 17:49 Review of Systems Status of ROS: Reports: 10 or more systems reviewed and unremarkable except as noted in History and below Narrative: Constitutional: No fevers, no weight gain or loss. Eyes: No discharge. No vision changes. HENT: No congestion, no sore throat, no ear pain. Cardiovascular: No chest pain, no palpitations. Respiratory: No shortness of breath, no wheezes, no cough. Gastrointestinal: No abdominal pain, no vomiting, no diarrhea. Genitourinary: No dysuria, no hematuria. Musculoskeletal: Right wrist injury as described above. Skin: No rashes, no pruritis. Neurological: No dizziness, weakness, sensory change, speech change. Endo/Heme/Allergies: No bruising or bleeding. No polydipsia. Pysch: no suicidality, no anxiety, no insomnia. All other systems reviewed and are negative. [facility] Medical History Asthma ?J45.909 - Unspecified asthma, uncomplicated (ICD-10) Depression ?F32.A - Depression, unspecified (ICD-10) OCD (obsessive compulsive disorder) ?F42.9 - Obsessive-compulsive disorder, unspecified (ICD-10) Surgical History History of colonoscopy ?Z98.890 - Other specified postprocedural states (ICD-10) History of endoscopy ?Z98.890 - Other specified postprocedural states (ICD-10) Social History Narrative: [employer] student. Exercises 5 to 7 times a day. Nonsmoker. Use alcohol 1 to 2 times a week. No recreational drug use. No concerns with safety or abuse. What is your current living situation?: I presently have a place to live Problems where you live: declined to answer In the past 12 months, utilities in danger of being shut off: no In past 12 months, lack of transportation kept you from medical appts, meetings, work, or getting things needed for daily living: no In the past 12 mos, have been you worried that your food would run out before you had money to buy more?: never true In the past 12 mos, the food you bought just didn't last and you didn't have money to buy more?: never true Smoking Status: Never smoker Do you use any of these nicotine containing products: None How often do you have a drink containing alcohol: monthly or less How often do you have six or more drinks on one occasion: Never AUDIT-C Alcohol total score: 1 Non-prescribed substance use: marijuana (any form) Non-prescribed substance use details: occasional edibles How often does anyone, including family, friends and others, physically hurt you: never How often does anyone, including family, friends and others, insult or talk down to you: rarely How often does anyone, including family, friends and others, threaten you with harm: never How often does anyone, including family, friends and others, scream or curse at you: never service: No Health Related Social Needs: Other personal risk factors, not elsewhere classified (Z91.89) Exam Narrative: Exam Narrative: Constitutional: Well-developed, well-nourished, no acute distress. HEENT: Normocephalic, atraumatic. Neck: Normal range of motion. Nontender. Supple. Heart: Intact distal pulses. Lungs: No chest discomfort. No wheezes, rhonchi, or rales. Abdomen: Nontender. Back: Normal range of motion. Extremities: The patient's right forearm is placed in a circumferential cast. There is no finger discoloration or decreased range of motion. Skin: Intact. No rash. Warm. No erythema or pallor. Neurologic: No altered sensation. No weakness. Alert and oriented. Psychiatric: No suicidality. No anxiety or depression. No insomnia. Nursing notes and vitals signs are reviewed. Const: Vital Signs, click to edit/add: Vital Signs - 24 hr 12/22/24 17:43 Temperature 98.8 F Pulse Rate [Right Pulse Oximeter] 85 Respiratory Rate 18 Blood Pressure [Le ft Upper Arm] 116/64 Pulse Oximetry 99 Oxygen Delivery Me thod Room Air Course Vital Signs Vital signs: Initial Vital Signs Temperature 98.8 F 12/22/24 17:43 Temperature Source Temporal Artery Scan 12/22/24 17:43 Pulse Rate 85 12/22/24 17:43 Pulse Rhythm Regular 12/22/24 17:43 Pulse Strength 3+ Normal 12/22/24 17:43 Respiratory Rate 18 12/22/24 17:43 Blood Pressure 116/64 12/22/24 17:43 Blood Pressure Mean 81 12/22/24 17:43 Blood Pressure Position Sitting 12/22/24 17:43 Pulse Oximetry 99 12/22/24 17:43 Oxygen Delivery Method Room Air 12/22/24 17:43 Vital Signs Temperature 98.8 F 12/22/24 17:43 Pulse Rate 85 12/22/24 17:43 Respiratory Rate 18 12/22/24 17:43 Blood Pressure 116/64 12/22/24 17:43 Pulse Oximetry 99 12/22/24 17:43 Oxygen Delivery Method Room Air 12/22/24 17:43 Temperature 98.8 F 12/22/24 17:43 Pulse Rate 85 12/22/24 17:43 Respiratory Rate 18 12/22/24 17:43 Blood Pressure 116/64 12/22/24 17:43 Pulse Oximetry 99 12/22/24 17:43 Oxygen Delivery Method Room Air 12/22/24 17:43 MDM - Extremity Injury (Upper) MDM Narrative Medical decision making narrative: This patient had a new cast placed on her right forearm earlier today and she is having increased pain with tingling to some of her fingers. I did contact our orthopedic department as I did not want to loosen the cast and compromise any positioning that the cast is affording. It was agreed to be appropriate to loosen the cast and leave it in place. The patient did have the ulnar aspect of the cast is loose and just a little bit and she got immediate relief. It does not appear that there is any compromise of the function of the cast otherwise. I advised the patient to follow-up with the orthopedic clinic tomorrow. Discharge Plan Discharge Clinical Impression: Cast discomfort Patient Disposition: Home, Self-Care Condition: Improved Additional Instructions: connect with [facility] Orthopedics regarding today's visit to loosen the cast. Use [id number] medicines as needed and directed. Follow up with MD or return otherwise if worsening. Prescriptions: No Action buspirone 10 mg tablet 20 mg PO BID Lo Loestrin Fe 1 mg-10 mcg (24)/10 mcg (2) tablet 1 tab PO QDAY fluticasone propion-salmeterol [Advair Diskus] 250-50 mcg/dose blister with device 2 inh inhalation BID montelukast [Singulair] 10 mg tablet 10 mg PO QDAY albuterol sulfate 90 mcg/actuation HFA aerosol inhaler 1 inh inhalation .PRN Follow Up/Referrals: Provider,Not a Local [Primary Care Provider] - Stand Alone Forms: [facility] Info Instructions
== END 2024-12-22 19:40 | disposition home or self-care (01) ==
PROVIDERS: Emergency Provider Emergency Medicine Emergency Medical Services
DX: M25.531 Pain in right wrist (principal); G89.18 Other acute postprocedural pain
CPT/HCPCS: 99282; 99283; 99284